=== PATIENT | female | born 1945 | race Caucasian/White ===

== ENCOUNTER → 2016-10-11 | Outpatient (CLI) | payer MEDICARE, BC ==
[~2016-10-11] MED LIST: ASPI81TA85 PO; BENI40TA7 PO; CELE100C PO; LABE20TAB PO; PRIL40CA PO; ULTR37.52 PO; WARF-23 PO; WELL100T2 PO
--- NOTE | 2016-10-12 08:56 | REP ---
MRI LUMBAR SPINE WITHOUT CONTRAST: HISTORY: Fracture. COMPARISON: 03/25/2013. Decreased signal intensity on T2-weighted images is present in the lumbar intervertebral discs. The discs are decreased in height. These findings are consistent with disc degeneration. A diffuse disc bulge is present at the L1-2 level. There is hypertrophy of the ligamenta flava and posterior articulating facets. These findings produce minimal central canal stenosis. The L1 nerves exit the neural foramina without compression. A diffuse disc bulge is present at the L2-3 level. There is hypertrophy of the ligamenta flava and posterior articulating facets. These findings produce mild central canal stenosis. The L2 nerves exit the neural foramina without compression. A diffuse disc bulge is present at the L3-4 level. There is hypertrophy of the ligamenta flava and posterior articulating facets. These findings produce moderate central canal stenosis. The L3 nerves exit the neural foramina without compression. A diffuse disc bulge is present at the L4-5 level. There is hypertrophy of the ligament flava and posterior articulating facets. There are 5 mm of grade 1 spondylolisthesis of L4 on 5. These findings produce severe central canal stenosis. The L4 nerves exit the neural foramina without compression. A diffuse disc bulge is present at the L5-S1 level. This abuts the S1 nerves. There is no thecal sac compression. There is hypertrophy of the posterior articulating facets. There is compression of the L5 nerves in the neural foramina. The conus medullaris is normal in appearance terminating at the level of the L1-2 intervertebral disc. Heterogeneous increased signal intensity on T2-weighted images is present in the L2 vertebral body . There is minimal loss of vertebra body height. This represents a subacute fracture. There is no subluxation. There is an old compression fracture of the L5 vertebral body with minimal height loss. Normal signal intensity is present in the remaining lumbar vertebral bodies. IMPRESSION: 1. Minimal central canal stenosis at the L1-2 level secondary to disc bulge, ligamentous and facet hypertrophy. 2. Mild central canal stenosis at the L2-3 level secondary to disc bulge, ligamentous and facet hypertrophy. 3. Moderate central canal stenosis at the L3-4 level secondary to disc bulge, ligamentous and facet hypertrophy. 4. Severe central canal stenosis at the L4-5 level secondary to disc bulge, ligamentous and facet hypertrophy and grade 1 spondylolisthesis. 5. Diffuse disc bulge at the L5-S1 level. This abuts the S1 nerves. There is compression of the L5 nerves in the neural foramina. 6. Subacute compression fracture of the L2 vertebral body with minimal height loss. The canal stenosis at the L1-2 level and L2 compression fracture are new findings. There is no other significant change. Signed by Alex Martínez MD 10/12/2016 09:03 A
== END ==
LOC: M RAD 17:59
PROVIDERS: ATTEND Neurological Surgery
DX: M51.26 Other intervertebral disc displacement, lumbar region (principal); M51.27 Other intervertebral disc displacement, lumbosacral region; M99.73 Connective tissue and disc stenosis of intervertebral foramina of lumbar region

== ENCOUNTER → 2016-10-18 | Outpatient (CLI) | payer MEDICARE, BC ==
[2016-10-18 16:53] LABS: INR 3.52
== END ==
LOC: M WUC 11:42
PROVIDERS: ATTEND Internal Medicine Cardiovascular Disease
DX: Z51.81 Encounter for therapeutic drug level monitoring (principal); Z79.01 Long term (current) use of anticoagulants; Z86.79 Personal history of other diseases of the circulatory system

== ENCOUNTER → 2016-10-18 | Outpatient (CLI) | payer MEDICARE, BC ==
[2016-10-18 19:18] LABS: ALBUMIN 3.8 GM/DL (3.2-5.2); ALBUMIN/GLOBULIN RATIO 1.27 (1.00-1.93); ALKALINE PHOSPHATASE 69 U/L (45-117); ALT/SGPT 40 U/L (12-78); ANION GAP 8 MEQ/L (8-16); AST/SGOT 32 U/L (15-37); BILIRUBIN,TOTAL 0.2 MG/DL (0.2-1.0); BLOOD UREA NITROGEN 28 MG/DL (7-18); CALCIUM LEVEL 9.1 MG/DL (8.8-10.2); CARBON DIOXIDE LEVEL 29 MEQ/L (21-32); CHLORIDE LEVEL 106 MEQ/L (98-107); CHOLESTEROL LEVEL 219 MG/DL (<200); CREATININE FOR GFR 1.16 MG/DL (0.55-1.02); GAMMA GLUTAMYLTRANSPEPTIDASE 41 U/L (5-55); GLOMERULAR FILTRATION RATE 48.9 (>39); GLUCOSE, FASTING 96 MG/DL (83-110); POTASSIUM SERUM 4.4 MEQ/L (3.5-5.1); SODIUM LEVEL 143 MEQ/L (136-145); TOTAL PROTEIN 6.8 GM/DL (6.4-8.2); TRIGLYCERIDES LEVEL 119 MG/DL (<150)
== END ==
LOC: M WUC 11:46
PROVIDERS: ATTEND Physician Assistant
DX: E78.2 Mixed hyperlipidemia (principal); Z79.01 Long term (current) use of anticoagulants
CPT/HCPCS: 36415; 80053; 80061; 82977; 85610; 86705; 86709; 86803; 87340; G0463

== ENCOUNTER → 2016-11-30 | Outpatient (CLI) | payer MEDICARE, BC ==
[2016-11-30 12:56] LABS: INR 4.01
== END ==
LOC: M WUC 10:41
PROVIDERS: ATTEND Internal Medicine Cardiovascular Disease
DX: Z51.81 Encounter for therapeutic drug level monitoring (principal); Z79.01 Long term (current) use of anticoagulants

== ENCOUNTER → 2017-01-04 | Outpatient (CLI) | payer MEDICARE, BC | LOC: M LAB 10:42 | PROVIDERS: ATTEND Neurological Surgery | DX: E66.9 Obesity, unspecified (principal); M47.892 Other spondylosis, cervical region; M47.896 Other spondylosis, lumbar region ==

== ENCOUNTER → 2017-01-04 | Outpatient (CLI) | payer MEDICARE, BC ==
[2017-01-04 14:15] LABS: INR 3.59
--- NOTE | 2017-01-04 14:32 | REP ---
CERVICAL SPINE COMPLETE: 01/04/2017. Comparison: 04/08/2008. Clinical history: Cervical spondylosis. Findings: Eight views were provided. The normal cervical lordosis is maintained. The vertebral body heights and the disc space heights were unchanged. I do not see significant loss of height of the vertebral bodies or disc spaces. Some minor hypertrophic facet changes. Excellent range of motion with flexion and extension lateral views noted without instability. The C1-2 relationships are stable on all views. There are some degenerative changes at the articulation of the dens and anterior arch of C1. The open-mouth view shows dens and lateral masses aligning normally. Oblique views show small uncinate spurs but no definite foraminal stenosis on either side. There is facet arthritis bilaterally on the AP view with spinous processes intact. Vascular calcifications for both carotid arteries noted. Impression: 1. Degenerative facet arthritis throughout the cervical spine without compression deformity, disc space narrowing or malalignment. No prevertebral swelling. 2. Minimal uncinate spurs without significant foraminal stenosis. Signed by Robert Bueno MD 01/04/2017 03:02 P
--- NOTE | 2017-01-04 15:01 | REP ---
LUMBOSACRAL SPINE: Seven views of the lumbosacral spine are performed. COMPARISON: 08/30/2016. There is 50 to 60% compression of the L2 vertebral body which has worsened since the prior exam. Mild compression deformity of L5 is unchanged. There is normal lumbar lordosis. There is mild anterior spondylolisthesis of L4 on L5 due to posterior facet arthropathy. This is fixed on all lateral views including flexion and extension views. There is mild to moderate diffuse spurring. There is disc space narrowing, subchondral sclerosis and vacuum phenomenon at L1-2. There is mild narrowing at L3-4, L4-5, and L5-S1. There is diffuse sclerosis and spurring at the posterior facet joints. The posterior elements appear intact. IMPRESSION: 50 to 60% compression of L2 has worsened since the prior study of 08/30/2016. Mild compression of L5 is unchanged. Diffuse degenerative changes as above. Signed by Shawn Valentin MD 01/05/2017 03:17 P
== END ==
LOC: M LAB 10:42
PROVIDERS: ATTEND Internal Medicine Cardiovascular Disease
DX: M47.892 Other spondylosis, cervical region (principal); M51.36 Other intervertebral disc degeneration, lumbar region; M51.37 Other intervertebral disc degeneration, lumbosacral region; M51.26 Other intervertebral disc displacement, lumbar region; E66.9 Obesity, unspecified; Z51.81 Encounter for therapeutic drug level monitoring; Z79.01 Long term (current) use of anticoagulants; Z86.79 Personal history of other diseases of the circulatory system

== ENCOUNTER → 2017-01-05 | Outpatient (CLI) | payer MEDICARE, BC ==
--- NOTE | 2017-01-05 17:27 | REP ---
MRI CERVICAL SPINE WITHOUT CONTRAST: 01/05/2017. Clinical history: Neck pain, cervical spondylosis. Comparison: X-ray 01/04/2017. Technique: Sagittal T1, T2 and STIR images with axial T1 and T2 sequences through the cervical spine. Findings: The normal cervical lordosis is maintained and the vertebral body heights and marrow signal throughout the cervical spine were unremarkable. Similarly into the upper thoracic spine for the first four levels are maintained. There is loss of disc water signal without loss of disc height from C2-3 through C7-T1. The dens shows normal relationship to the anterior arch of C1. The craniocervical junction shows an ample subarachnoid space without cerebellar tonsillar ectopia. The brainstem and cerebellum are without focal lesion. Cervical cord shows no syrinx, atrophy or mass. At C2-3, there is no disc bulge or herniation and no spinal or foraminal stenosis. At C3-4, there is a broad-based disc bulge with central disc protrusion. This abuts the ventral cord surface. The AP canal diameter remains 9 mm, is only mildly stenotic. Cross-sectional area of the canal is mildly stenotic and the subarachnoid space very limited; foramina are adequate. At C4-5, there is mild broad-based disc bulge, loss of the subarachnoid space with AP canal diameter of 9 mm as well. Foramina adequate. At C5-6, mild broad-based disc bulge flattening ventral thecal sac. Foramina borderline on both sides due to uncinate and facet spurs. At C6-7, very mild broad-based disc bulge flattening ventral thecal sac. Cross-sectional area of the canal 8.7 mm. Foramina adequate. At C7-T1, there is also mild broad-based disc bulge flattening the ventral thecal sac. Central canal AP diameter 9.4 mm without foraminal encroachment. Impression: 1. Multilevel degenerative disc changes and some mild central canal stenosis based on congenital and combined factors. The largest area of disc disease is at C3-4 with a central disc protrusion. Foramina were adequate. No cord compression, syrinx, atrophy, myelomalacia or intramedullary mass. 2. Cervical spondylosis from C4-5 through C7-T1, likely also related to some combined acquired and congenital factors. Signed by Robert Bueno MD 01/06/2017 08:57 A
== END ==
LOC: M RAD 15:30
PROVIDERS: ATTEND Neurological Surgery
DX: M50.31 Other cervical disc degeneration, high cervical region (principal); M47.812 Spondylosis without myelopathy or radiculopathy, cervical region; M47.813 Spondylosis without myelopathy or radiculopathy, cervicothoracic region

== ENCOUNTER → 2017-01-09 | Outpatient (CLI) | payer MEDICARE, BC ==
--- NOTE | 2017-01-09 10:59 | REP ---
CT LUMBAR SPINE WITHOUT CONTRAST: HISTORY: Spondylosis. COMPARISON: MR 10/11/2016. A diffuse disc bulge is present at the L1-2 level. There is hypertrophy of the ligamenta flava and posterior articulating facets. These findings produce minimal central canal stenosis. The L1 nerves exit the neural foramina without compression. A diffuse disc bulge is present at the L2-3 level. There is hypertrophy of the ligamenta flava and posterior articulating facets. These findings produce mild central canal stenosis. The L2 nerves exit the neural foramina without compression. A diffuse disc bulge is present at the L3-4 level. There is hypertrophy of the ligamenta flava and posterior articulating facets. These findings produce moderate central canal stenosis. There is compression of the left L3 nerve in the neural foramen. The right L3 nerve exits the neural foramen without compression. A diffuse disc bulge is present at the L4-5 level There is hypertrophy of the ligamenta flava and posterior articulating facets. There are 6 mm of grade 1 spondylolisthesis of L4 on 5. These findings produce severe central canal stenosis. The L4 nerves exit the neural foramina without compression. A diffuse disc bulge is present at the L5-S1 level. This abuts the S1 nerves. There is no thecal sac compression. There is hypertrophy of the posterior articulating facets. There is compression of the L5 nerves in the neural foramina. The lumbar intervertebral discs are decreased in height. Vacuum phenomenon is present at the L1-2 level These findings are consistent with disc degeneration. There is an old compression fracture of the L1 vertebral body with minimal height loss. There is very minimal retropulsion with minimal thecal sac compression. IMPRESSION: 1. Minimal central canal stenosis at the L1-2 level secondary to disc bulge, ligamentous and facet hypertrophy. 2. Mild central canal stenosis at the L2-3 level secondary to disc bulge ligamentous and facet hypertrophy. 3. Moderate central canal stenosis at the L3-4 level secondary to disc bulge, ligamentous and facet hypertrophy. There is compression of the left L3 nerve in the neural foramen. 4. Severe central canal stenosis at the L4-5 level secondary to disc bulge, ligamentous and facet hypertrophy and grade 1 spondylolisthesis. 5. Diffuse disc bulge at the L5-S1 level. This abuts the S1 nerves. There is compression of the L5 nerves in the neural foramina. 6. Old L1 compression fracture with minimal height loss and retropulsion. There is no significant change compared to the previous study. ? Signed by Alex Martínez MD 01/09/2017 11:04 A
== END ==
LOC: M RAD 09:56
PROVIDERS: ATTEND Neurological Surgery
DX: M99.53 Intervertebral disc stenosis of neural canal of lumbar region (principal); M51.27 Other intervertebral disc displacement, lumbosacral region; M84.48XD Pathological fracture, other site, subsequent encounter for fracture with routine healing

== ENCOUNTER → 2017-01-17 | Outpatient (CLI) | payer MEDICARE, BC ==
--- NOTE | 2017-01-19 09:18 | REPMRS ---
Patient History The patient states she has not had a clinical breast exam in over a year. Patient is postmenopausal. Family history of colorectal cancer in maternal aunt. Took hormonal contraceptives for 1 year. Took estrogen for 6 months. Digital Woman Screen Mammo: January 17, 2017 - Exam #: [id number] Bilateral MLO, CC, and XCCL view(s) were taken. Technologist: Pau Soto, Technologist Prior study comparison: May 28, 2012, bilateral bilat screen digital mammo, performed at [facility] ([facility]). October 04, 2010, bilateral screening mammogram, performed at [facility] ([facility]). FINDINGS: There are scattered fibroglandular densities. There has been no change in the appearance of the mammogram from the prior studies. There is a mild amount of residual fibroglandular tissue which is fairly symmetric. There is no interval development of dominant mass, architectural distortion, or clustered microcalcification suggestive of malignancy. ASSESSMENT: BI-RADS/ACR category 1 mammogram. Negative. Recommendation Routine screening mammogram in 1 year (for women over age 40). This mammogram was interpreted with the aid of an FDA-approved computer-aided dectection system. Electronically Signed By: Shawn Valentin MD 01/17/17 [id number]
--- NOTE | 2017-01-19 12:04 | DEXA ---
AP SPINE L1 - L4 1.404 1.7 2.5 LT FEMUR TOTAL 0.794 -1.7 -0.7 RT FEMUR TOTAL 0.769 -1.9 0.9 TOTAL BODY TOTAL OTHER DUAL FEMUR FRAX* ASSESSMENT Risk factors: History of adult fracture. 10 year probability of fracture Major osteoporotic fracture 20.1 % Hip fracture 4.7 % COMMENTS: Normal bone densitometry of the spine. There is low bone density of the hips. The increased density of the spine does represent a significant change. The decreased density of the left hip does represent significant change. The decreased density of the right hip does represent significant change. The density of the spine has increased 20.8% since the initial exam on 1999. The spine density has increased 7.3% since the most recent exam on 10/04/2010. The density of the left hip has decreased 6.5% since the initial exam on 1999. The density of the left hip has decreased 5.1% since the most recent exam on 07/2011. The density of the right hip has decreased 3.5% since the initial exam on 1999. The density of the right hip has decreased 3.9% since the most recent exam on . FOLLOW-UP: Recommendation for the next bone density exam: 2 years. DEEPA
== END ==
LOC: M WHC 08:29
PROVIDERS: ATTEND Physician Assistant
DX: Z12.31 Encounter for screening mammogram for malignant neoplasm of breast (principal); M85.80 Other specified disorders of bone density and structure, unspecified site; Z78.0 Asymptomatic menopausal state; Z92.0 Personal history of contraception
CPT/HCPCS: 77080; G0202

== ENCOUNTER → 2017-02-12 | Outpatient (CLI) | payer MEDICARE, BC ==
[2017-02-12 17:26] LABS: INR 3.25
== END ==
LOC: M WUC 15:42
PROVIDERS: ATTEND Internal Medicine Cardiovascular Disease
DX: Z51.81 Encounter for therapeutic drug level monitoring (principal); Z79.01 Long term (current) use of anticoagulants

== ENCOUNTER → 2017-03-16 | Outpatient (CLI) | payer MEDICARE, BC ==
[2017-03-16 17:22] LABS: ALBUMIN 3.7 GM/DL (3.2-5.2); ALBUMIN/GLOBULIN RATIO 1.16 (1.00-1.93); ALKALINE PHOSPHATASE 64 U/L (45-117); ALT/SGPT 51 U/L (12-78); ANION GAP 7 MEQ/L (8-16); AST/SGOT 24 U/L (15-37); BILIRUBIN,TOTAL 0.3 MG/DL (0.2-1.0); BLOOD UREA NITROGEN 32 MG/DL (7-18); CALCIUM LEVEL 8.9 MG/DL (8.8-10.2); CARBON DIOXIDE LEVEL 30 MEQ/L (21-32); CHLORIDE LEVEL 105 MEQ/L (98-107); CHOLESTEROL LEVEL 236 MG/DL (<200); GAMMA GLUTAMYLTRANSPEPTIDASE 55 U/L (5-55); GLOMERULAR FILTRATION RATE 51.8 (>39); GLUCOSE, FASTING 104 MG/DL (83-110); POTASSIUM SERUM 4.4 MEQ/L (3.5-5.1); SODIUM LEVEL 142 MEQ/L (136-145); TOTAL PROTEIN 6.9 GM/DL (6.4-8.2); TRIGLYCERIDES LEVEL 115 MG/DL (<150)
== END ==
LOC: M WUC 10:30
PROVIDERS: ATTEND Physician Assistant
DX: E78.2 Mixed hyperlipidemia (principal); Z51.81 Encounter for therapeutic drug level monitoring; Z79.01 Long term (current) use of anticoagulants

== ENCOUNTER → 2017-03-16 | Outpatient (CLI) | payer MEDICARE, BC ==
[2017-03-16 16:44] LABS: INR 2.66
== END ==
LOC: M WUC 10:50
PROVIDERS: ATTEND Internal Medicine Cardiovascular Disease
DX: Z51.81 Encounter for therapeutic drug level monitoring (principal); Z79.01 Long term (current) use of anticoagulants

== ENCOUNTER → 2017-05-03 | Outpatient (CLI) | payer MEDICARE, BC ==
[~2017-05-03] MED LIST changes: +BENI40TA30 PO; -BENI40TA7 PO; -ULTR37.52 PO; +ULTR37.54 PO
[2017-05-03 17:25] LABS: INR 3.81
== END ==
LOC: M WUC 13:44
PROVIDERS: ATTEND Internal Medicine Cardiovascular Disease
DX: Z51.81 Encounter for therapeutic drug level monitoring (principal); Z79.01 Long term (current) use of anticoagulants

== ENCOUNTER → 2017-06-15 | Outpatient (CLI) | payer MEDICARE, BC ==
[2017-06-15 19:22] LABS: INR 4.15
== END ==
LOC: M WUC 16:06
PROVIDERS: ATTEND Internal Medicine Cardiovascular Disease
DX: Z51.81 Encounter for therapeutic drug level monitoring (principal); Z79.01 Long term (current) use of anticoagulants

== ENCOUNTER → 2017-07-31 | Outpatient (REF) | payer MEDICARE, BC ==
[2017-07-31 11:59] LABS: RENAL EPITHELIAL CELLS 2 /HPF
== END ==
LOC: M SFHCLERA 09:24
PROVIDERS: ATTEND Family Medicine
DX: R35.0 Frequency of micturition (principal); J34.89 Other specified disorders of nose and nasal sinuses; Z23 Encounter for immunization
CPT/HCPCS: 81001; 87086; 90686; G0008; G0463

== ENCOUNTER → 2017-08-22 | Outpatient (CLI) | payer MEDICARE, BC ==
[2017-08-22 19:30] LABS: MEAN CORPUSCULAR HEMOGLOBIN 32.6 pg (27.0-33.0); MEAN CORPUSCULAR HGB CONC 31.9 g/dl (32.0-36.5); MEAN CORPUSCULAR VOLUME 102.4 fl (80.0-96.0); PLATELET COUNT, AUTOMATED 388 10^3/uL (150-450); RED CELL DISTRIBUTION WIDTH 14.4 % (11.5-14.5); WHITE BLOOD COUNT 10.2 10^3/uL (4.0-10.0)
[2017-08-22 20:04] LABS: ALBUMIN 3.6 GM/DL (3.2-5.2); ALBUMIN/GLOBULIN RATIO 1.03 (1.00-1.93); BILIRUBIN,TOTAL 0.3 MG/DL (0.2-1.0); CALCIUM LEVEL 8.9 MG/DL (8.8-10.2); CREATININE FOR GFR 1.2 MG/DL (0.55-1.02); GLOMERULAR FILTRATION RATE 46.9 (>39); POTASSIUM SERUM 4.4 MEQ/L (3.5-5.1); TOTAL PROTEIN 7.1 GM/DL (6.4-8.2)
== END ==
LOC: M WUC 11:11
PROVIDERS: ATTEND Physician Assistant
DX: N18.3 Chronic kidney disease, stage 3 (moderate) (principal); E78.2 Mixed hyperlipidemia; Z51.81 Encounter for therapeutic drug level monitoring; Z79.01 Long term (current) use of anticoagulants

== ENCOUNTER → 2017-08-22 | Outpatient (CLI) | payer MEDICARE, BC ==
[2017-08-22 17:48] LABS: INR 4.39
== END ==
LOC: M WUC 11:14
PROVIDERS: ATTEND Internal Medicine Cardiovascular Disease
DX: Z51.81 Encounter for therapeutic drug level monitoring (principal); Z79.01 Long term (current) use of anticoagulants

== ENCOUNTER → 2017-09-06 | Outpatient (REF) | payer MEDICARE, BC | LOC: M SFHCLERA 10:02 | PROVIDERS: ATTEND Physician Assistant | DX: R35.0 Frequency of micturition (principal) ==

== ENCOUNTER → 2017-09-07 | Outpatient (CLI) | payer MEDICARE, BC ==
--- NOTE | 2017-09-07 17:52 | REP ---
Right lower extremity deep vein duplex ultrasound: The deep veins demonstrate normal compression, normal Doppler color flow and normal Doppler waveforms with respiration and augmentation from the popliteal vein to the common femoral vein. Impression: There is no deep vein thrombus in the right lower extremity. Signed by Shawn Barreto MD 09/07/2017 05:43 P
== END ==
LOC: M RAD 16:59
PROVIDERS: ATTEND Physician Assistant
DX: M79.89 Other specified soft tissue disorders (principal)

== ENCOUNTER → 2017-09-11 | Outpatient (REF) | payer MEDICARE, BC | LOC: M SFHCLERA 19:11 | PROVIDERS: ATTEND Physician Assistant | DX: R35.0 Frequency of micturition (principal) ==

== ENCOUNTER → 2017-10-12 | Outpatient (CLI) | payer MEDICARE, BC ==
[2017-10-12 18:27] LABS: INR 4.69; PROTHROMBIN TIME 46.7 SECONDS (12.4-14.5)
== END ==
LOC: M WUC 15:23
DX: Z51.81 Encounter for therapeutic drug level monitoring (principal); Z79.01 Long term (current) use of anticoagulants
CPT/HCPCS: 85610

== ENCOUNTER → 2017-10-23 | Outpatient (CLI) | payer MEDICARE, BC ==
[2017-10-23 17:09] LABS: INR 2.26; PROTHROMBIN TIME 25.8 SECONDS (12.4-14.5)
== END ==
LOC: M WUC 15:10
DX: I74.09 Other arterial embolism and thrombosis of abdominal aorta (principal); Z79.01 Long term (current) use of anticoagulants
CPT/HCPCS: 85610

== ENCOUNTER → 2017-12-12 | Outpatient (CLI) | payer MEDICARE, BC ==
[2017-12-12 09:42] LABS: INR 1.33; PROTHROMBIN TIME 16.8 SECONDS (12.4-14.5)
== END ==
LOC: M LAB 08:56
DX: Z51.81 Encounter for therapeutic drug level monitoring (principal); Z79.01 Long term (current) use of anticoagulants; M46.1 Sacroiliitis, not elsewhere classified
CPT/HCPCS: 85610

== ENCOUNTER → 2018-01-10 | Outpatient (CLI) | payer MEDICARE, BC ==
[2018-01-10 09:37] LABS: INR 1.15; PROTHROMBIN TIME 14.9 SECONDS (12.4-14.5)
== END ==
LOC: M LAB 09:06
DX: M46.1 Sacroiliitis, not elsewhere classified (principal); M47.816 Spondylosis without myelopathy or radiculopathy, lumbar region; M47.817 Spondylosis without myelopathy or radiculopathy, lumbosacral region; M51.36 Other intervertebral disc degeneration, lumbar region; M51.37 Other intervertebral disc degeneration, lumbosacral region; M51.27 Other intervertebral disc displacement, lumbosacral region; M51.26 Other intervertebral disc displacement, lumbar region; Z79.01 Long term (current) use of anticoagulants
CPT/HCPCS: 85610

== ENCOUNTER → 2018-02-01 | Outpatient (CLI) | payer MEDICARE, BC ==
[2018-02-01 10:35] LABS: PROTHROMBIN TIME 14.4 SECONDS (12.4-14.5)
== END ==
LOC: M LAB 09:57
DX: M46.1 Sacroiliitis, not elsewhere classified (principal)
CPT/HCPCS: 85610

== ENCOUNTER → 2018-03-19 | Outpatient (CLI) | payer MEDICARE, BC | LOC: M RAD 12:46 | DX: M46.1 Sacroiliitis, not elsewhere classified (principal) | CPT/HCPCS: 72148 ==

== ENCOUNTER → 2018-03-28 | Outpatient (CLI) | payer MEDICARE, BC ==
[2018-03-28 13:23] LABS: INR 4.03; PROTHROMBIN TIME 40.2 SECONDS (12.1-14.4)
== END ==
LOC: M WUC 09:42
DX: I74.09 Other arterial embolism and thrombosis of abdominal aorta (principal); Z79.01 Long term (current) use of anticoagulants
CPT/HCPCS: 85610

== ENCOUNTER → 2018-04-05 | Outpatient (CLI) | payer MEDICARE, BC ==
[2018-04-05 09:40] LABS: INR 1.04; PROTHROMBIN TIME 13.7 SECONDS (12.1-14.4)
== END ==
LOC: M LAB 08:29
DX: M46.1 Sacroiliitis, not elsewhere classified (principal)

== ENCOUNTER → 2018-04-05 | Outpatient (CLI) | payer MEDICARE, BC ==
[2018-04-05 09:36] LABS: HEMATOCRIT 34.1 % (36.0-47.0); HEMOGLOBIN 11.2 g/dl (12.0-15.5); MEAN CORPUSCULAR HEMOGLOBIN 33.3 pg (27.0-33.0); MEAN CORPUSCULAR HGB CONC 32.8 g/dl (32.0-36.5); MEAN CORPUSCULAR VOLUME 101.5 fl (80.0-96.0); PLATELET COUNT, AUTOMATED 309 10^3/uL (150-450); RED BLOOD COUNT 3.36 10^6/uL (4.00-5.40); WHITE BLOOD COUNT 6.8 10^3/uL (4.0-10.0)
[2018-04-05 09:42] LABS: APPEARANCE, URINE CLEAR (CLEAR); BACTERIA, URINE AUTO NEGATIVE (NEGATIVE); BILIRUBIN, URINE AUTO NEGATIVE (NEGATIVE); BLOOD, URINE BLOOD NEGATIVE (NEGATIVE); COLOR, URINE YELLOW (YELLOW); GLUCOSE, URINE (UA) AUTO NEGATIVE (NEGATIVE); KETONE, URINE AUTO NEGATIVE (NEGATIVE); LEUKOCYTE ESTERASE, URINE AUTO NEGATIVE (NEGATIVE); MUCUS, URINE SMALL (NEGATIVE); NITRITE, URINE AUTO NEGATIVE (NEGATIVE); PROTEIN, URINE AUTO NEGATIVE (NEGATIVE); RBC, URINE AUTO 2 /HPF (0-3); SQUAMOUS EPITHELIAL CELL UR AU 6 /HPF (0-6); UROBILINOGEN, URINE AUTO 0.2 mg/dL (0.0-2.0); WBC, URINE AUTO 6 /HPF (0-3)
[2018-04-05 09:56] LABS: ERYTHROCYTE SEDIMENTATION RATE 61 mm/hr (0-30)
[2018-04-05 10:12] LABS: VITAMIN B12 LEVEL 728 PG/ML (247-911)
[2018-04-05 10:13] LABS: FOLATE 9.1 NG/ML (>5.4)
[2018-04-05 10:18] LABS: ESTIMATED AVERAGE GLUCOSE 117 MG/DL (60-110); HEMOGLOBIN A1c 5.7 %
[2018-04-05 10:30] LABS: ALBUMIN 3.4 GM/DL (3.2-5.2); ALBUMIN/GLOBULIN RATIO 0.97 (1.00-1.93); ALKALINE PHOSPHATASE 63 U/L (45-117); ALT/SGPT 34 U/L (12-78); ANION GAP 9 MEQ/L (8-16); AST/SGOT 25 U/L (7-37); BILIRUBIN,TOTAL 0.5 MG/DL (0.2-1.0); BLOOD UREA NITROGEN 23 MG/DL (7-18); CARBON DIOXIDE LEVEL 29 MEQ/L (21-32); CHLORIDE LEVEL 105 MEQ/L (98-107); CHOLESTEROL LEVEL 237 MG/DL (<200); CHOLESTEROL RISK RATIO 4.388 (<5); CREATININE FOR GFR 1.11 MG/DL (0.55-1.30); FREE T4 0.93 NG/DL (0.76-1.46); GLOMERULAR FILTRATION RATE 51.2 (>39); GLUCOSE, FASTING 108 MG/DL (70-100); HDL CHOLESTEROL 54 MG/DL (>40); IRON (FE) 159 UG/DL (50-170); LDL CHOLESTEROL 149.4 MG/DL (<100); MAGNESIUM LEVEL 1.8 MG/DL (1.8-2.4); NON-HDL-C 183 MG/DL; POTASSIUM SERUM 4.5 MEQ/L (3.5-5.1); SODIUM LEVEL 143 MEQ/L (136-145); TOTAL PROTEIN 6.9 GM/DL (6.4-8.2); TRIGLYCERIDES LEVEL 168 MG/DL (<150)
== END ==
LOC: M LAB 08:34
DX: D64.9 Anemia, unspecified (principal); Z79.01 Long term (current) use of anticoagulants; Z79.899 Other long term (current) drug therapy; M46.1 Sacroiliitis, not elsewhere classified
CPT/HCPCS: 82746

== ENCOUNTER → 2018-05-10 | Outpatient (CLI) | payer MEDICARE, BC ==
[2018-05-10 09:46] LABS: INR 1.09; PROTHROMBIN TIME 14.2 SECONDS (12.1-14.4)
== END ==
LOC: M LAB 08:29
DX: M46.1 Sacroiliitis, not elsewhere classified (principal); Z79.01 Long term (current) use of anticoagulants
CPT/HCPCS: 85610

== ENCOUNTER → 2018-07-10 | Outpatient (CLI) | payer MEDICARE, BC ==
[2018-07-10 10:06] LABS: INR 1.15; PROTHROMBIN TIME 14.9 SECONDS (12.1-14.4)
== END ==
LOC: M LAB 09:21
DX: M46.1 Sacroiliitis, not elsewhere classified (principal)
CPT/HCPCS: 85610

== ENCOUNTER → 2018-08-01 | Outpatient (CLI) | payer MEDICARE, BC ==
[2018-08-01 12:45] LABS: BASO # 0.1 10^3/uL (0.0-0.2); BASO % 0.9 % (0.0-1.0); EOS # 0.2 10^3/uL (0.0-0.50); EOS % 3.7 % (0.0-3.0); HEMOGLOBIN 11.6 g/dl (12.0-15.5); IMMATURE GRANULOCYTE % 0.3 % (0-3.0); LYMPH # 1.9 10^3/uL (1.5-4.5); LYMPH % 29.4 % (24.0-44.0); MEAN CORPUSCULAR HEMOGLOBIN 33.4 pg (27.0-33.0); MEAN CORPUSCULAR HGB CONC 33.1 g/dl (32.0-36.5); MEAN CORPUSCULAR VOLUME 100.9 fl (80.0-96.0); MONO # 0.6 10^3/uL (0.0-0.8); MONO % 9.9 % (0.0-5.0); NEUTROPHILS # 3.6 10^3/uL (1.8-7.7); NEUTROPHILS % 55.8 % (36.0-66.0); PLATELET COUNT, AUTOMATED 298 10^3/uL (150-450); RED BLOOD COUNT 3.47 10^6/uL (4.00-5.40); RED CELL DISTRIBUTION WIDTH 13.2 % (11.5-14.5); RETIC HEMOGLOBIN EQUIVALENT 37.6 pg (24-36); RETICULOCYTE # 47.2 10^9/L (17-77); RETICULOCYTE % 1.4 % (0.5-1.5); WHITE BLOOD COUNT 6.5 10^3/uL (4.0-10.0)
[2018-08-01 13:44] LABS: ALBUMIN 3.6 GM/DL (3.2-5.2); ALBUMIN/GLOBULIN RATIO 1.06 (1.00-1.93); ALKALINE PHOSPHATASE 65 U/L (45-117); ALT/SGPT 43 U/L (12-78); ANION GAP 9 MEQ/L (8-16); AST/SGOT 35 U/L (7-37); BILIRUBIN,TOTAL 0.2 MG/DL (0.2-1.0); BLOOD UREA NITROGEN 30 MG/DL (7-18); CALCIUM LEVEL 9.2 MG/DL (8.8-10.2); CARBON DIOXIDE LEVEL 27 MEQ/L (21-32); CHLORIDE LEVEL 104 MEQ/L (98-107); CHOLESTEROL LEVEL 239 MG/DL (<200); CREATININE FOR GFR 1.12 MG/DL (0.55-1.30); FERRITIN 34 NG/ML (8-252); GLOMERULAR FILTRATION RATE 50.6 (>39); GLUCOSE, FASTING 106 MG/DL (70-100); HDL CHOLESTEROL 59 MG/DL (>40); IRON (FE) 70 UG/DL (50-170); LDL CHOLESTEROL 151 MG/DL (<100); MAGNESIUM LEVEL 2.1 MG/DL (1.8-2.4); NON-HDL-C 180 MG/DL; PERCENT SATURATION 21.3 % (13.2-45.0); POTASSIUM SERUM 4.1 MEQ/L (3.5-5.1); PTH INTACT 67.9 PG/ML (18.5-88.0); SODIUM LEVEL 140 MEQ/L (136-145); TOTAL 25(OH) VITAMIN D 33.1 NG/ML (30.0-100.0); TOTAL IRON BINDING CAPACITY 329 UG/DL (250-450); TRIGLYCERIDES LEVEL 144 MG/DL (<150)
[2018-08-01 18:31] LABS: ESTIMATED AVERAGE GLUCOSE 120 MG/DL (60-110); HEMOGLOBIN A1c 5.8 %
[2018-08-02 14:35] LABS: INSULIN LEVEL 14.9 uIU/mL (2.6-24.9)
== END ==
LOC: M WUC 10:04
DX: N18.3 Chronic kidney disease, stage 3 (moderate) (principal); D64.9 Anemia, unspecified; R73.01 Impaired fasting glucose; E78.2 Mixed hyperlipidemia; I12.9 Hypertensive chronic kidney disease with stage 1 through stage 4 chronic kidney disease, or unspecified chronic kidney disease; E55.9 Vitamin D deficiency, unspecified; I74.5 Embolism and thrombosis of iliac artery; Z51.81 Encounter for therapeutic drug level monitoring; Z79.01 Long term (current) use of anticoagulants
CPT/HCPCS: 83525

== ENCOUNTER → 2018-08-01 | Outpatient (CLI) | payer MEDICARE, BC ==
[2018-08-01 17:17] LABS: INR 4.88; PROTHROMBIN TIME 46.8 SECONDS (12.1-14.4)
== END ==
LOC: M WUC 11:28
DX: I74.5 Embolism and thrombosis of iliac artery (principal); Z51.81 Encounter for therapeutic drug level monitoring; Z79.01 Long term (current) use of anticoagulants

== ENCOUNTER → 2018-08-21 | Outpatient (CLI) | payer MEDICARE, BC ==
[2018-08-21 16:58] LABS: INR 4.19; PROTHROMBIN TIME 41.5 SECONDS (12.1-14.4)
== END ==
LOC: M WUC 11:28
DX: I74.09 Other arterial embolism and thrombosis of abdominal aorta (principal); Z79.01 Long term (current) use of anticoagulants
CPT/HCPCS: 85610

== ENCOUNTER → 2018-09-30 | Outpatient (CLI) | payer MEDICARE, BC ==
[2018-09-30 13:20] LABS: INR 3.61; PROTHROMBIN TIME 36.8 SECONDS (12.1-14.4)
== END ==
LOC: M WUC 08:41
PROVIDERS: ATTEND Internal Medicine Cardiovascular Disease
DX: Z79.01 Long term (current) use of anticoagulants (principal)

== ENCOUNTER → 2018-10-22 | Outpatient (REF) | payer MEDICARE, BC ==
[2018-10-22 16:12] LABS: ALBUMIN 3.6 GM/DL (3.2-5.2); CALCIUM LEVEL 8.9 MG/DL (8.8-10.2); CREATININE FOR GFR 1.13 MG/DL (0.55-1.30); GLOMERULAR FILTRATION RATE 50.1 (>39); PHOSPHORUS LEVEL 3.4 MG/DL (2.5-4.9); POTASSIUM SERUM 4.3 MEQ/L (3.5-5.1)
[2018-10-22 16:46] LABS: INR 3.75; PARTIAL THROMBOPLASTIN TIME 49.9 SECONDS (25.4-37.6)
== END ==
LOC: M SFHCPLAZ 12:13
PROVIDERS: ATTEND Nurse Practitioner Family
DX: I10 Essential (primary) hypertension (principal); Z79.01 Long term (current) use of anticoagulants
CPT/HCPCS: 36415; 80069; 85610; 85730; G0404

== ENCOUNTER → 2018-10-28 | Outpatient (CLI) | payer MEDICARE, BC ==
--- NOTE | 2018-10-28 12:29 | REP ---
Urinary tract sonography with renal artery Doppler flow assessment: History: Hypertension. Morphologic findings: Renal cortical echogenicity pattern is normal and renal contours are smooth bilaterally. No hydronephrosis is seen. No cyst or mass is seen. No calculus is observed. The right kidney measures 10.2 x 5.9 x 4.9 cm. Left renal dimensions are 11.7 x 5.5 x 5.1 cm. Renal artery Doppler assessment: Peak systolic flow velocity in the abdominal aorta at the level of the main renal arteries is normal at 60 cm/sec. Peak systolic flow velocity in the right main renal artery is recorded at 57 cm/sec and that in the left at 81 cm/sec. Renal to aortic flow velocity ratios are therefore normal at 1.4 bilaterally. Resistive indices and acceleration times are measured in the upper, mid, and lower pole intralobar arteries of each kidney and these values are normal bilaterally. Impression: No significant morphologic abnormality. There is no renal artery Doppler evidence to suggest renal artery stenosis. Electronically Signed by Lamin Gamez MD 10/28/2018 01:55 P
== END ==
LOC: M RAD 08:25
PROVIDERS: ATTEND Nurse Practitioner Family
DX: I10 Essential (primary) hypertension (principal)

== ENCOUNTER → 2018-12-02 | Outpatient (CLI) | payer MEDICARE, BC ==
[2018-12-02 12:33] LABS: BASO # 0.1 10^3/uL (0.0-0.2); BASO % 1.1 % (0.0-1.0); EOS # 0.3 10^3/uL (0.0-0.50); EOS % 4.3 % (0.0-3.0); HEMATOCRIT 35.9 % (36.0-47.0); LYMPH # 2.2 10^3/uL (1.5-4.5); MEAN CORPUSCULAR HGB CONC 33.4 g/dl (32.0-36.5); MEAN CORPUSCULAR VOLUME 98.6 fl (80.0-96.0); MONO # 0.7 10^3/uL (0.0-0.8); MONO % 9.3 % (0.0-5.0); NEUTROPHILS # 3.7 10^3/uL (1.8-7.7); NEUTROPHILS % 53.7 % (36.0-66.0); PLATELET COUNT, AUTOMATED 321 10^3/uL (150-450); RED BLOOD COUNT 3.64 10^6/uL (4.00-5.40)
[2018-12-02 13:13] LABS: ALBUMIN 3.2 GM/DL (3.2-5.2); BILIRUBIN,TOTAL 0.3 MG/DL (0.2-1.0); CALCIUM LEVEL 8.4 MG/DL (8.8-10.2); CHOLESTEROL RISK RATIO 3.783 (<5); CREATININE FOR GFR 1.11 MG/DL (0.55-1.30); FOLATE 9.4 NG/ML (>5.4); GLOMERULAR FILTRATION RATE 51.2 (>39); MAGNESIUM LEVEL 1.9 MG/DL (1.8-2.4); POTASSIUM SERUM 3.6 MEQ/L (3.5-5.1); THYROID STIMULATING HORMONE 1.96 uIU/ML (0.358-3.740); TOTAL 25(OH) VITAMIN D 24.6 NG/ML (30.0-100.0); TOTAL PROTEIN 6.5 GM/DL (6.4-8.2)
[2018-12-02 13:14] LABS: PHOSPHORUS LEVEL 3.1 MG/DL (2.5-4.9)
== END ==
LOC: M WUC 08:46
PROVIDERS: ATTEND Nurse Practitioner Family
DX: I10 Essential (primary) hypertension (principal); E78.2 Mixed hyperlipidemia; D64.9 Anemia, unspecified; E55.9 Vitamin D deficiency, unspecified; R73.01 Impaired fasting glucose

== ENCOUNTER → 2019-01-01 | Outpatient (CLI) | payer MEDICARE, BC ==
[~2019-01-01] MED LIST changes: +ISOVUE-370 76% 100ML VIAL (Q9967) As Ordered ONE
--- NOTE | 2019-01-01 10:33 | REP ---
CT angiography of the abdomen, pelvis and lower extremities: The patient has bilateral claudication and history of previous vascular surgery. The study is performed with intravenous contrast. There is no abdominal aortic aneurysm. There is occasional abdominal aortic calcified atheroma. The origins of the celiac artery, superior mesenteric artery and right and left renal arteries are unremarkable. 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 The left iliac artery is unremarkable. The left femoral artery is unremarkable. There is a cross femoral graft from the left femoral artery to the proximal right femoral artery. There is total occlusion of the right superficial femoral artery at the junction of the middle distal thirds. There is reconstitution of the right popliteal artery via collaterals. The left superficial femoral artery is unremarkable. The left popliteal artery is unremarkable. The popliteal artery trifurcations are unremarkable bilaterally. There is three-vessel runoff across the ankles bilaterally. 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 There is total occlusion of the distal right superficial femoral artery. Reconstitution of the right popliteal artery through collaterals. Three-vessel runoff across the ankles from the popliteal artery trifurcations bilaterally. The CT of the abdomen and pelvis: There are no comparisons. The visualized lung [place] are unremarkable. The hepatic parenchyma, gallbladder, pancreas are unremarkable. There is no identifiable spleen. There are calcifications at the tail of the pancreas in the splenic bed. The there are a few small nodular densities in the splenic bed, splenosis versus normal size lymph nodes. The adrenals are unremarkable. The kidneys are unremarkable except for bilateral renal cortical atrophy. There is an umbilical hernia containing loops of transverse colon. There is no bowel distension or obstruction. The mesentery is unremarkable. Pelvis: The appendix is unremarkable. The pelvic bowel loops are unremarkable. The uterus and adnexa are unremarkable. The bladder is unremarkable. Impression: There is no identifiable spleen. There are a few small nodules in the splenic bed, splenosis versus normal size lymph nodes. There are calcifications at the tip of the pancreatic tail in the splenic bed. Bilateral renal cortical atrophy. Umbilical hernia. Electronically Signed by Shawn Barreto MD 01/01/2019 10:25 A
== END ==
LOC: M RAD 08:34
PROVIDERS: ATTEND Surgery Vascular Surgery
DX: I74.5 Embolism and thrombosis of iliac artery (principal); K42.9 Umbilical hernia without obstruction or gangrene; I70.513 Atherosclerosis of nonautologous biological bypass graft(s) of the extremities with intermittent claudication, bilateral legs; Z48.812 Encounter for surgical aftercare following surgery on the circulatory system
CPT/HCPCS: 75635; 85610; G0463; Q9967

== ENCOUNTER → 2019-01-27 | Outpatient (REF) | payer MEDICARE, BC ==
[~2019-01-27] MED LIST changes: -ISOVUE-370 76% 100ML VIAL (Q9967) As Ordered ONE
[2019-01-27 16:03] LABS: HEMATOCRIT 37.9 % (36.0-47.0); HEMOGLOBIN 12.5 g/dl (12.0-15.5); MEAN CORPUSCULAR HEMOGLOBIN 33.1 pg (27.0-33.0); MEAN CORPUSCULAR VOLUME 100.3 fl (80.0-96.0); PLATELET COUNT, AUTOMATED 263 10^3/uL (150-450); RED BLOOD COUNT 3.78 10^6/uL (4.00-5.40)
[2019-01-27 16:38] LABS: FREE T4 1.13 NG/DL (0.76-1.46); THYROID STIMULATING HORMONE 1.44 uIU/ML (0.358-3.740)
== END ==
LOC: M SFHCPLAZ 14:33
PROVIDERS: ATTEND Nurse Practitioner Family
DX: R53.83 Other fatigue (principal); Z79.01 Long term (current) use of anticoagulants
CPT/HCPCS: 36415; 84439; 84443; 85027; 85610; G0463

== ENCOUNTER → 2019-03-31 | Outpatient (CLI) | payer MEDICARE, BC ==
[2019-03-31 13:08] LABS: BASO # 0.1 10^3/uL (0.0-0.2); BASO % 1.4 % (0.0-1.0); EOS # 0.4 10^3/uL (0.0-0.50); EOS % 6.2 % (0.0-3.0); HEMATOCRIT 37.3 % (36.0-47.0); HEMOGLOBIN 12.3 g/dl (12.0-15.5); LYMPH # 2.2 10^3/uL (1.5-4.5); LYMPH % 34.9 % (24.0-44.0); MEAN CORPUSCULAR HEMOGLOBIN 32.7 pg (27.0-33.0); MEAN CORPUSCULAR VOLUME 99.2 fl (80.0-96.0); MONO # 0.6 10^3/uL (0.0-0.8); MONO % 9.2 % (0.0-5.0); NEUTROPHILS # 3.1 10^3/uL (1.8-7.7); PLATELET COUNT, AUTOMATED 319 10^3/uL (150-450); RED BLOOD COUNT 3.76 10^6/uL (4.00-5.40); WHITE BLOOD COUNT 6.4 10^3/uL (4.0-10.0)
[2019-03-31 13:17] LABS: ALBUMIN 3.5 GM/DL (3.2-5.2); BILIRUBIN,TOTAL 0.2 MG/DL (0.2-1.0); CHOLESTEROL RISK RATIO 2.597 (<5); CREATININE FOR GFR 1.08 MG/DL (0.55-1.30); GLOMERULAR FILTRATION RATE 52.7 (>39); MAGNESIUM LEVEL 2.2 MG/DL (1.8-2.4); PHOSPHORUS LEVEL 3.7 MG/DL (2.5-4.9); POTASSIUM SERUM 3.5 MEQ/L (3.5-5.1); THYROID STIMULATING HORMONE 2.05 uIU/ML (0.358-3.740); TOTAL PROTEIN 6.9 GM/DL (6.4-8.2)
[2019-03-31 13:21] LABS: FOLATE 11.9 NG/ML (>5.4)
[2019-03-31 14:21] LABS: HEMOGLOBIN A1c 5.8 %
== END ==
LOC: M WUC 08:37
PROVIDERS: ATTEND Nurse Practitioner Family
DX: Z79.01 Long term (current) use of anticoagulants (principal); E78.2 Mixed hyperlipidemia; E55.9 Vitamin D deficiency, unspecified; K21.9 Gastro-esophageal reflux disease without esophagitis; D64.9 Anemia, unspecified; M79.7 Fibromyalgia; I12.9 Hypertensive chronic kidney disease with stage 1 through stage 4 chronic kidney disease, or unspecified chronic kidney disease

== ENCOUNTER → 2019-04-02 | Outpatient (REF) | payer MEDICARE, BC | LOC: M SFHCPLAZ 15:37 | PROVIDERS: ATTEND Nurse Practitioner Family | DX: M48.061 Spinal stenosis, lumbar region without neurogenic claudication (principal) ==

== ENCOUNTER → 2019-04-30 | Outpatient (CLI) | payer MEDICARE, BC ==
--- NOTE | 2019-04-30 15:12 | REPMRS ---
Patient History The patient states she has not had a clinical breast exam in over a year. Family history of colorectal cancer in maternal aunt. Took hormonal contraceptives for 1 year. Took estrogen for 6 months. 3D TOMOSYNTHESIS WAS PERFORMED. [facility] Digital Woman Screen Mammo: April 30, 2019 - Exam #: [id number] Bilateral CC and MLO view(s) were taken. Technologist: Aida Michel, Technologist Prior study comparison: January 17, 2017, digital woman screen mammo performed at [facility]. May 28, 2012, bilateral bilat screen digital mammo, performed at [facility] ([facility] FINDINGS: There are scattered fibroglandular densities. There has been no change in the appearance of the mammogram from the prior studies. There is a mild amount of residual fibroglandular tissue which is fairly symmetric. There is no interval development of dominant mass, architectural distortion, or clustered microcalcification suggestive of malignancy. Assessment: BI-RADS/ACR category 1 mammogram. Negative Mammogram. Recommendation Routine screening mammogram in 1 year (for women over age 40). This mammogram was interpreted with the aid of an FDA-approved computer-aided dectection system. Electronically Signed By: Shawn Valentin MD 04/30/19 [id number]
--- NOTE | 2019-05-07 15:34 | DEXA ---
AP SPINE L1 - L4 1.429 1.9 3.6 LT FEMUR TOTAL 0.776 -1.8 -0.1 LT NECK 0.717 -2.3 -0.4 RT FEMUR TOTAL 0.765 -1.9 -0.2 RT NECK 0.732 -2.2 -0.3 TOTAL BODY TOTAL OTHER COMMENTS: Normal bone densitometry of the spine. There is low bone density of the hips. The increased density of the spine does not represent a significant change. The decreased density of the left hip does represent a significant change. The decreased density of the right hip does not represent a significant change. The density of the spine has increased 23.0% since the initial exam on 07/05/2000. The spine density has increased 1.8% since the most recent exam on 01/17/2017. The density of the left hip has decreased 8.6% since the initial exam on 07/05/2000. The density of the left hip has decreased 2.3% since the most recent exam on 01/17/2017. The density of the right hip has decreased 4.0% since the initial exam on 07/05/2000. The density of the right hip has decreased 0.5% since the most recent exam on 01/17/2017. FOLLOW-UP: Recommendation for the next bone density exam: 2 years. DEEPA
== END ==
LOC: M WHC 13:26
PROVIDERS: ATTEND Nurse Practitioner Family
DX: Z12.31 Encounter for screening mammogram for malignant neoplasm of breast (principal); M85.88 Other specified disorders of bone density and structure, other site; Z92.0 Personal history of contraception; Z92.23 Personal history of estrogen therapy; Z79.01 Long term (current) use of anticoagulants
CPT/HCPCS: 77063; 77067; 77080; 85610; G0463

== ENCOUNTER → 2019-06-20 | Outpatient (REF) | payer MEDICARE, BC ==
[2019-06-20 14:24] LABS: INR 3.67; PROTHROMBIN TIME 36.5 SECONDS (11.8-14.0)
[2019-06-20 14:25] LABS: PARTIAL THROMBOPLASTIN TIME 38.5 SECONDS (25.0-38.4)
== END ==
LOC: M SFHCPLAZ 11:33
PROVIDERS: ATTEND Nurse Practitioner Family
DX: Z51.81 Encounter for therapeutic drug level monitoring (principal); Z79.01 Long term (current) use of anticoagulants
CPT/HCPCS: 85610; 85730; G0463

== ENCOUNTER → 2019-08-05 | Outpatient (CLI) | payer MEDICARE, BC ==
[2019-08-05 14:12] LABS: BASO # 0.1 10^3/uL (0.0-0.2); BASO % 1.1 % (0.0-1.0); EOS # 0.2 10^3/uL (0.0-0.5); EOS % 1.8 % (0.0-3.0); HEMATOCRIT 40.2 % (36.0-47.0); HEMOGLOBIN 13.2 g/dl (12.0-15.5); LYMPH # 1.5 10^3/uL (1.5-5.0); LYMPH % 18.3 % (24.0-44.0); MEAN CORPUSCULAR HEMOGLOBIN 33.4 pg (27.0-33.0); MEAN CORPUSCULAR HGB CONC 32.8 g/dl (32.0-36.5); MEAN CORPUSCULAR VOLUME 101.8 fl (80.0-96.0); MONO # 0.6 10^3/uL (0.0-0.8); MONO % 7.2 % (0.0-5.0); NEUTROPHILS # 5.9 10^3/uL (1.5-8.5); NEUTROPHILS % 71.4 % (36.0-66.0); PLATELET COUNT, AUTOMATED 318 10^3/uL (150-450); RED BLOOD COUNT 3.95 10^6/uL (4.00-5.40); WHITE BLOOD COUNT 8.3 10^3/uL (4.0-10.0)
[2019-08-05 14:23] LABS: ALBUMIN 3.6 GM/DL (3.2-5.2); BILIRUBIN,TOTAL 0.5 MG/DL (0.2-1.0); CALCIUM LEVEL 9.2 MG/DL (8.8-10.2); CHOLESTEROL RISK RATIO 4.3 (<5); CREATININE FOR GFR 1.18 MG/DL (0.55-1.30); FREE T4 1.11 NG/DL (0.76-1.46); GLOMERULAR FILTRATION RATE 47.5 (>39); INR 2.32; MAGNESIUM LEVEL 2.6 MG/DL (1.8-2.4); PARTIAL THROMBOPLASTIN TIME 34.5 SECONDS (25.0-38.4); PROTHROMBIN TIME 25.3 SECONDS (11.8-14.0); THYROID STIMULATING HORMONE 1.61 uIU/ML (0.358-3.740); TOTAL PROTEIN 7.1 GM/DL (6.4-8.2)
[2019-08-05 14:27] LABS: TOTAL 25(OH) VITAMIN D 48.7 NG/ML (30.0-100.0)
[2019-08-05 14:37] LABS: HEMOGLOBIN A1c 5.6 %
[2019-08-06 12:24] LABS: C REACTIVE PROTEIN QUANTITATIV 1.13 MG/DL (0.00-0.30)
[2019-08-06 12:45] LABS: ERYTHROCYTE SEDIMENTATION RATE 30 mm/hr (0-30)
== END ==
LOC: M WUC 11:55
PROVIDERS: ATTEND Nurse Practitioner Family
DX: M48.061 Spinal stenosis, lumbar region without neurogenic claudication (principal); I10 Essential (primary) hypertension; E55.9 Vitamin D deficiency, unspecified; E78.2 Mixed hyperlipidemia; R73.01 Impaired fasting glucose; Z79.01 Long term (current) use of anticoagulants; Z79.82 Long term (current) use of aspirin; Z79.899 Other long term (current) drug therapy

== ENCOUNTER → 2019-10-24 | Outpatient (CLI) | payer MEDICARE, BC | LOC: M PLALAB 14:58 | PROVIDERS: ATTEND Internal Medicine Rheumatology | DX: M35.3 Polymyalgia rheumatica (principal) ==

== ENCOUNTER → 2020-02-10 | Outpatient (CLI) | payer MEDICARE, BC ==
[2020-02-10 13:05] LABS: BASO # 0.1 10^3/uL (0.0-0.2); BASO % 1.5 % (0.0-1.0); EOS # 0.6 10^3/uL (0.0-0.5); EOS % 8.2 % (0.0-3.0); HEMATOCRIT 35.2 % (36.0-47.0); HEMOGLOBIN 11.2 g/dl (12.0-15.5); LYMPH # 2.7 10^3/uL (1.5-5.0); LYMPH % 35.7 % (24.0-44.0); MEAN CORPUSCULAR HEMOGLOBIN 32.9 pg (27.0-33.0); MEAN CORPUSCULAR HGB CONC 31.8 g/dl (32.0-36.5); MEAN CORPUSCULAR VOLUME 103.5 fl (80.0-96.0); MONO # 0.8 10^3/uL (0.0-0.8); NEUTROPHILS # 3.3 10^3/uL (1.5-8.5); NEUTROPHILS % 43.2 % (36.0-66.0); PLATELET COUNT, AUTOMATED 227 10^3/uL (150-450); WHITE BLOOD COUNT 7.5 10^3/uL (4.0-10.0)
[2020-02-10 13:16] LABS: INR 2.53; PARTIAL THROMBOPLASTIN TIME 37.1 SECONDS (25.0-38.4); PROTHROMBIN TIME 27.1 SECONDS (11.8-14.0)
[2020-02-10 13:21] LABS: ALBUMIN 3.4 GM/DL (3.2-5.2); ALT/SGPT 28 U/L (12-78); BILIRUBIN,TOTAL 0.3 MG/DL (0.2-1.0); BLOOD UREA NITROGEN 33 MG/DL (7-18); C REACTIVE PROTEIN QUANTITATIV 0.31 MG/DL (0.00-0.30); CALCIUM LEVEL 8.7 MG/DL (8.8-10.2); CARBON DIOXIDE LEVEL 32 MEQ/L (21-32); CHLORIDE LEVEL 108 MEQ/L (98-107); CHOLESTEROL LEVEL 158 MG/DL (<200); CHOLESTEROL RISK RATIO 2.257 (<5); GLOMERULAR FILTRATION RATE 51.4 (>39); GLUCOSE, FASTING 107 MG/DL (70-100); HDL CHOLESTEROL 70 MG/DL (>40); LDL CHOLESTEROL 73 MG/DL (<100); MAGNESIUM LEVEL 2.3 MG/DL (1.8-2.4); NON-HDL-C 88 MG/DL; POTASSIUM SERUM 4.3 MEQ/L (3.5-5.1); SODIUM LEVEL 144 MEQ/L (136-145); TOTAL 25(OH) VITAMIN D 56.1 NG/ML (30.0-100.0); TOTAL PROTEIN 6.5 GM/DL (6.4-8.2); TRIGLYCERIDES LEVEL 73 MG/DL (<150); VITAMIN B12 LEVEL > 2000 PG/ML (247-911)
[2020-02-10 16:59] LABS: HEMOGLOBIN A1c 5.7 %
[2020-02-12 11:43] LABS: ALBUMIN 3.69 GM/DL (3.29-5.55); ALBUMIN % 56.8 % (55.8-66.1); ALPHA-1-GLOBULIN % 4.6 % (2.9-4.9); ALPHA-2-GLOBULINS 0.81 GM/DL (0.42-0.99); ALPHA-2-GLOBULINS % 12.5 % (7.1-11.8); BETA-1-GLOBULINS 0.42 GM/DL (0.28-0.60); BETA-1-GLOBULINS % 6.4 % (4.7-7.2); BETA-2-GLOBULINS 0.37 GM/DL (0.19-0.55); BETA-2-GLOBULINS % 5.7 % (3.2-6.5); GAMMA GLOBULINS 0.91 GM/DL (0.65-1.58)
== END ==
LOC: M WUC 09:07
PROVIDERS: ATTEND Nurse Practitioner Family
DX: Z51.81 Encounter for therapeutic drug level monitoring (principal); I10 Essential (primary) hypertension; E78.2 Mixed hyperlipidemia; E55.9 Vitamin D deficiency, unspecified; R73.01 Impaired fasting glucose; D64.9 Anemia, unspecified; D75.89 Other specified diseases of blood and blood-forming organs; Z79.899 Other long term (current) drug therapy

== ENCOUNTER → 2020-03-31 | Outpatient (REF) | payer MEDICARE, BC ==
[2020-03-31 15:39] LABS: INR 2.36; PROTHROMBIN TIME 25.6 SECONDS (11.8-14.0)
== END ==
LOC: M PLALAB 13:02
PROVIDERS: ATTEND Nurse Practitioner Family
DX: Z51.81 Encounter for therapeutic drug level monitoring (principal); Z79.01 Long term (current) use of anticoagulants

== ENCOUNTER → 2020-04-29 | Outpatient (REF) | payer MEDICARE, BC ==
[~2020-04-29] MED LIST changes: -ASPI81TA85 PO; +ASPI81TA86 PO; +BACI500O21 TOP; +CHLO125TA; +DULO1CAP6; +ENOX100I3; +ROSU10TA6; +TELM1TAB37
[2020-05-27 12:40] LABS: INR 2.57; PROTHROMBIN TIME 28.2 SECONDS (11.8-14.0)
== END ==
LOC: M SFHCPLAZ 10:06
PROVIDERS: ATTEND Physician Assistant Medical
DX: Z79.01 Long term (current) use of anticoagulants (principal)

== ENCOUNTER 2020-05-26 16:30 | Emergency (ER) | payer MEDICARE, BC ==
[~2020-05-26] VITALS: Ht 162.6 cm; Wt 91.1 kg
[~2020-05-26 16:30] MED LIST changes: -BACI500O21 TOP; -CHLO125TA; -DULO1CAP6; -ENOX100I3; -ROSU10TA6; -TELM1TAB37
[2020-05-26] MEDS ORDERED: ENOX100I3 (16:41)
[2020-05-26] MEDS ORDERED: ROSU10TA6 (16:41)
[2020-05-26] MEDS ORDERED: TELM1TAB37 (16:41)
[2020-05-26] MEDS ORDERED: CHLO125TA (16:41)
[2020-05-26] MEDS ORDERED: DULO1CAP6 (16:41)
[2020-05-26 17:18] LABS: BASO # 0.1 10^3/uL (0.0-0.2); BASO % 0.6 % (0.0-1.0); EOS # 0.2 10^3/uL (0.0-0.5); EOS % 2.3 % (0.0-3.0); HEMATOCRIT 26.8 % (36.0-47.0); HEMOGLOBIN 8.9 g/dl (12.0-15.5); LYMPH # 2.5 10^3/uL (1.5-5.0); LYMPH % 23.6 % (24.0-44.0); MEAN CORPUSCULAR HEMOGLOBIN 31.8 pg (27.0-33.0); MEAN CORPUSCULAR HGB CONC 33.2 g/dl (32.0-36.5); MEAN CORPUSCULAR VOLUME 95.7 fl (80.0-96.0); MONO # 1.2 10^3/uL (0.0-0.8); MONO % 11.2 % (0.0-5.0); NEUTROPHILS # 6.4 10^3/uL (1.5-8.5); NEUTROPHILS % 61.5 % (36.0-66.0); PLATELET COUNT, AUTOMATED 258 10^3/uL (150-450); WHITE BLOOD COUNT 10.4 10^3/uL (4.0-10.0)
[2020-05-26 17:40] LABS: INR 1.32; PROTHROMBIN TIME 16.7 SECONDS (11.8-14.0)
--- NOTE | 2020-05-26 18:26 | REPVR ---
PROCEDURE INFORMATION: Exam: US Duplex Left Upper Extremity Veins, Limited Exam date and time: 05/26/2020 6:00 PM Age: 75 years old Clinical indication: Pain; Arm, upper; Left; Prior surgery; Surgery date: <1 month; Surgery type: Pic line removal; Additional info: Recent picc removal, hard swollen ecchymosis TECHNIQUE: Imaging protocol: Real-time Duplex ultrasound of the Left Upper Extremity with 2-D ledezma scale, color Doppler flow and spectral waveform analysis with image documentation. Limited exam focused on the left upper extremity veins. COMPARISON: No relevant prior studies available. FINDINGS: Left deep veins: Internal jugular, subclavian, axillary and brachial veins patent without thrombus. Normal compressibility, augmentation response and/or Doppler waveforms. Left superficial veins: Suboptimal visualization of the basilic vein Visualized cephalic vein patent without thrombus. Soft tissues: At least 2 complex intramuscular collections abutting the humeral shaft, measuring up to 5.1 x 2.2 x 3.7 cm, likely hematomas. IMPRESSION: 1. No sonographic evidence of deep vein thrombosis. 2. At least 2 complex intramuscular collections abutting the humeral shaft, measuring up to 5.1 x 2.2 x 3.7 cm, likely hematomas. Electronically signed by: Juan Mccabe On 05/26/2020 18:25:40 PM
--- NOTE | 2020-05-26 18:52 | REPVR ---
PROCEDURE INFORMATION: Exam: US Left Non-Vascular Joint or Other Extremity Structure, Limited Upper Extremity Exam date and time: 05/26/2020 6:00 PM Age: 75 years old Clinical indication: Pain; Upper arm; Left; Prior surgery; Surgery date: <1 month; Patient HX: Picc line removal; Additional info: Recent picc removal, hard swollen ecchymosis TECHNIQUE: Imaging protocol: Left US joint or other nonvascular extremity structure or structures. Real-time ultrasound with image documentation. Limited study. Exam focused on the upper extremity in the region of clinical interest. COMPARISON: No relevant prior studies available. FINDINGS: Soft tissues: At least 2 complex intramuscular collections abutting the humeral shaft, measuring up to 5.1 x 2.2 x 3.7 cm, likely hematomas. IMPRESSION: At least 2 complex intramuscular collections abutting the humeral shaft, measuring up to 5.1 x 2.2 x 3.7 cm, likely hematomas. Electronically signed by: Juan Mccabe On 05/26/2020 18:52:43 PM
[2020-05-26 19:16] VITALS: BP 133/70
[2020-05-26] MEDS ORDERED: BACI500O21 TOP (19:16)
--- NOTE | 2020-05-27 10:45 | ED PDOC ---
Post-Departure Follow-Up vivien phipps faxed formal report of extrem us for fu Jayro Lewis MD May 27, 2020 10:45
== END 2020-05-26 19:29 | disposition home or self-care (01) ==
LOC: M ED 16:30
DX: S40.022A Contusion of left upper arm, initial encounter (principal); S41.112A Laceration without foreign body of left upper arm, initial encounter; X58.XXXA Exposure to other specified factors, initial encounter; Y92.89 Other specified places as the place of occurrence of the external cause; I10 Essential (primary) hypertension; E78.5 Hyperlipidemia, unspecified; Z79.01 Long term (current) use of anticoagulants

== ENCOUNTER → 2020-05-27 | Outpatient (CLI) | payer MEDICARE, BC ==
[~2020-05-27] MED LIST changes: +BACI500O21 TOP; +CHLO125TA; +DULO1CAP6; +ENOX100I3; +ROSU10TA6; +TELM1TAB37
[2020-05-27 13:07] LABS: HEMATOCRIT 25.9 % (36.0-47.0); HEMOGLOBIN 8.7 g/dl (12.0-15.5); MEAN CORPUSCULAR HEMOGLOBIN 32.5 pg (27.0-33.0); MEAN CORPUSCULAR HGB CONC 33.6 g/dl (32.0-36.5); MEAN CORPUSCULAR VOLUME 96.6 fl (80.0-96.0); PLATELET COUNT, AUTOMATED 282 10^3/uL (150-450); RED BLOOD COUNT 2.68 10^6/uL (4.00-5.40); WHITE BLOOD COUNT 12.4 10^3/uL (4.0-10.0)
[2020-05-27 13:18] LABS: INR 1.66; PROTHROMBIN TIME 19.9 SECONDS (11.8-14.0)
[2020-05-27 13:19] LABS: PARTIAL THROMBOPLASTIN TIME 65.1 SECONDS (25.0-38.4)
[2020-05-27 13:30] LABS: ALBUMIN 3.2 GM/DL (3.2-5.2); BILIRUBIN,TOTAL 1.4 MG/DL (0.2-1.0); CALCIUM LEVEL 8.8 MG/DL (8.8-10.2); CREATININE FOR GFR 1.11 MG/DL (0.55-1.30); GLOMERULAR FILTRATION RATE 50.9 (>39); POTASSIUM SERUM 3.5 MEQ/L (3.5-5.1); TOTAL PROTEIN 6.6 GM/DL (6.4-8.2)
== END ==
LOC: M PLALAB 11:09
PROVIDERS: ATTEND Family Medicine
DX: F50.9 Eating disorder, unspecified (principal); D64.9 Anemia, unspecified; I82.409 Acute embolism and thrombosis of unspecified deep veins of unspecified lower extremity

== ENCOUNTER → 2020-05-28 | Outpatient (CLI) | payer MEDICARE, BC ==
[2020-05-28 15:45] LABS: HEMATOCRIT 27.1 % (36.0-47.0); HEMOGLOBIN 8.8 g/dl (12.0-15.5); MEAN CORPUSCULAR HEMOGLOBIN 31.5 pg (27.0-33.0); MEAN CORPUSCULAR HGB CONC 32.5 g/dl (32.0-36.5); MEAN CORPUSCULAR VOLUME 97.1 fl (80.0-96.0); PLATELET COUNT, AUTOMATED 320 10^3/uL (150-450); RED BLOOD COUNT 2.79 10^6/uL (4.00-5.40)
== END ==
LOC: M PLALAB 15:10
PROVIDERS: ATTEND Nurse Practitioner Family
DX: I73.9 Peripheral vascular disease, unspecified (principal); D68.59 Other primary thrombophilia

== ENCOUNTER → 2020-05-30 | Outpatient (CLI) | payer MEDICARE, BC ==
[2020-05-30 12:35] LABS: HEMOGLOBIN 8.7 g/dl (12.0-15.5); MEAN CORPUSCULAR HEMOGLOBIN 31.8 pg (27.0-33.0); MEAN CORPUSCULAR HGB CONC 32.2 g/dl (32.0-36.5); MEAN CORPUSCULAR VOLUME 98.5 fl (80.0-96.0); PLATELET COUNT, AUTOMATED 351 10^3/uL (150-450); RED BLOOD COUNT 2.74 10^6/uL (4.00-5.40); WHITE BLOOD COUNT 10.5 10^3/uL (4.0-10.0)
[2020-05-30 12:48] LABS: INR 2.82; PROTHROMBIN TIME 30.3 SECONDS (11.8-14.0)
== END ==
LOC: M WUC 10:24
PROVIDERS: ATTEND Family Medicine
DX: D68.59 Other primary thrombophilia (principal); I73.9 Peripheral vascular disease, unspecified

== ENCOUNTER → 2020-06-09 | Outpatient (CLI) | payer MEDICARE, BC ==
[2020-06-09 13:38] LABS: BASO # 0.1 10^3/uL (0.0-0.2); BASO % 1.2 % (0.0-1.0); EOS # 0.4 10^3/uL (0.0-0.5); EOS % 4.6 % (0.0-3.0); HEMATOCRIT 32.2 % (36.0-47.0); HEMOGLOBIN 10.3 g/dl (12.0-15.5); LYMPH # 2.2 10^3/uL (1.5-5.0); LYMPH % 28.7 % (24.0-44.0); MEAN CORPUSCULAR HEMOGLOBIN 32.9 pg (27.0-33.0); MEAN CORPUSCULAR VOLUME 102.9 fl (80.0-96.0); MONO # 0.6 10^3/uL (0.0-0.8); MONO % 7.7 % (0.0-5.0); NEUTROPHILS # 4.4 10^3/uL (1.5-8.5); NEUTROPHILS % 56.6 % (36.0-66.0); PLATELET COUNT, AUTOMATED 400 10^3/uL (150-450); RED BLOOD COUNT 3.13 10^6/uL (4.00-5.40); WHITE BLOOD COUNT 7.7 10^3/uL (4.0-10.0)
[2020-06-09 14:10] LABS: CALCIUM LEVEL 8.5 MG/DL (8.8-10.2); CREATININE FOR GFR 1.3 MG/DL (0.55-1.30); FREE T4 1.03 NG/DL (0.76-1.46); GLOMERULAR FILTRATION RATE 42.4 (>39); THYROID STIMULATING HORMONE 3.16 uIU/ML (0.358-3.740)
== END ==
LOC: M PLALAB 09:50
PROVIDERS: ATTEND Nurse Practitioner Family
DX: M79.7 Fibromyalgia (principal); D75.89 Other specified diseases of blood and blood-forming organs; I10 Essential (primary) hypertension
CPT/HCPCS: 36415; 80048; 84439; 84443; 85025; G0463

== ENCOUNTER → 2020-07-29 | Outpatient (CLI) | payer MEDICARE, BC ==
--- NOTE | 2020-08-04 07:18 | SLEEPHOME ---
DATE: 07/29/2020 ORDERED BY: Yuko Goldberg NP Diagnostic home sleep testing was performed due to concern for the obstructive sleep apnea syndrome. For testing, a nocturnal T3 respiratory monitoring device was used. Continuous record was made of pulse, oxygen saturation, air flow, chest and abdominal strain, and body position. Nine hours and 59 minutes of data were reviewed. There were 7 hours and 20 minutes marked as time in bed. During the interval marked time in bed, there were 39 respiratory events identified of 10 seconds in duration or greater for a respiratory event index of 5.3. The events were primarily obstructive, 7 mixed and central apneas were noted. Baseline pulse rate was 77. Pulse rate ranged 63 to 103. Baseline saturation was 92%. Saturations fell to 87%. Testing was performed in both the supine and nonsupine positions. IMPRESSION: Abnormal home sleep testing with repetitive respiratory events and oxygen desaturations to 87% with a respiratory event index of 5.3 is consistent with the obstructive sleep apnea syndrome. RECOMMENDATION: A trial of sleep position retraining so as to avoid the supine posture may be helpful as most of the patient's respiratory events were associated with that position. If sleep symptoms persist, referral for a formal sleep evaluation could be considered. DEEPA
== END ==
LOC: M SLEEP HO 10:26
PROVIDERS: ATTEND Nurse Practitioner Family
DX: R06.83 Snoring (principal)

== ENCOUNTER → 2020-10-29 | Outpatient (REF) | payer MEDICARE, BC ==
[2020-10-29 15:32] LABS: BASO # 0.1 10^3/uL (0.0-0.2); BASO % 1.1 % (0.0-1.0); EOS # 0.5 10^3/uL (0.0-0.5); EOS % 7.1 % (0.0-3.0); HEMATOCRIT 35.5 % (36.0-47.0); HEMOGLOBIN 11.3 g/dl (12.0-15.5); LYMPH # 2.7 10^3/uL (1.5-5.0); LYMPH % 36.4 % (24.0-44.0); MEAN CORPUSCULAR HEMOGLOBIN 32.7 pg (27.0-33.0); MEAN CORPUSCULAR HGB CONC 31.8 g/dl (32.0-36.5); MEAN CORPUSCULAR VOLUME 102.6 fl (80.0-96.0); MONO # 0.7 10^3/uL (0.0-0.8); MONO % 9.9 % (0.0-5.0); NEUTROPHILS # 3.3 10^3/uL (1.5-8.5); NEUTROPHILS % 45.1 % (36.0-66.0); PLATELET COUNT, AUTOMATED 245 10^3/uL (150-450); RED BLOOD COUNT 3.46 10^6/uL (4.00-5.40); WHITE BLOOD COUNT 7.3 10^3/uL (4.0-10.0)
[2020-10-29 15:45] LABS: INR 2.65; PROTHROMBIN TIME 28.9 SECONDS (12.5-14.3)
[2020-10-29 16:06] LABS: ALBUMIN 3.6 GM/DL (3.2-5.2); BILIRUBIN,TOTAL 0.3 MG/DL (0.2-1.0); CALCIUM LEVEL 9.1 MG/DL (8.8-10.2); CREATININE FOR GFR 1.27 MG/DL (0.55-1.30); GLOMERULAR FILTRATION RATE 43.6 (>39); POTASSIUM SERUM 4.3 MEQ/L (3.5-5.1)
[2020-10-29 16:40] LABS: HEMOGLOBIN A1c 5.8 %
== END ==
LOC: M SFHCPLAZ 13:07
PROVIDERS: ATTEND Family Medicine
DX: I10 Essential (primary) hypertension (principal); Z79.899 Other long term (current) drug therapy; Z86.718 Personal history of other venous thrombosis and embolism
CPT/HCPCS: 36415; 80053; 82728; 83036; 83880; 85025; 85610; 85730; 93005; G0463

== ENCOUNTER → 2021-01-05 | Outpatient (CLI) | payer MEDICARE, BC ==
[2021-01-05 11:37] LABS: BASO # 0.1 10^3/uL (0.0-0.2); BASO % 1.2 % (0.0-1.0); EOS # 1.1 10^3/uL (0.0-0.5); HEMATOCRIT 34.1 % (36.0-47.0); HEMOGLOBIN 10.7 g/dl (12.0-15.5); LYMPH # 2.5 10^3/uL (1.5-5.0); LYMPH % 37.7 % (24.0-44.0); MEAN CORPUSCULAR HGB CONC 31.4 g/dl (32.0-36.5); MEAN CORPUSCULAR VOLUME 105.2 fl (80.0-96.0); MONO # 0.6 10^3/uL (0.0-0.8); MONO % 9.2 % (2.0-8.0); NEUTROPHILS # 2.4 10^3/uL (1.5-8.5); NEUTROPHILS % 35.8 % (36.0-66.0); PLATELET COUNT, AUTOMATED 318 10^3/uL (150-450); RED BLOOD COUNT 3.24 10^6/uL (4.00-5.40); WHITE BLOOD COUNT 6.7 10^3/uL (4.0-10.0)
[2021-01-05 11:49] LABS: INR 2.18; PROTHROMBIN TIME 24.8 SECONDS (12.5-14.3)
[2021-01-05 14:55] LABS: BILIRUBIN,TOTAL 0.5 MG/DL (0.2-1.0); CALCIUM LEVEL 9.3 MG/DL (8.8-10.2); CREATININE FOR GFR 1.11 MG/DL (0.55-1.30); GLOMERULAR FILTRATION RATE 50.9 (>39); POTASSIUM SERUM 4.5 MEQ/L (3.5-5.1)
[2021-01-05 14:56] LABS: ALBUMIN 3.4 GM/DL (3.2-5.2); C REACTIVE PROTEIN QUANTITATIV 0.87 MG/DL (0.00-0.30); CHOLESTEROL RISK RATIO 2.754 (<5); FREE T4 0.94 NG/DL (0.76-1.46); THYROID STIMULATING HORMONE 2.57 uIU/ML (0.358-3.740); TOTAL 25(OH) VITAMIN D 34.3 NG/ML (30.0-100.0); TOTAL PROTEIN 6.6 GM/DL (6.4-8.2)
[2021-01-06 14:44] LABS: HEMOGLOBIN A1c 5.8 %
== END ==
LOC: M WUC 08:10
PROVIDERS: ATTEND Nurse Practitioner Family
DX: M48.061 Spinal stenosis, lumbar region without neurogenic claudication (principal); Z86.718 Personal history of other venous thrombosis and embolism; E55.9 Vitamin D deficiency, unspecified; E78.2 Mixed hyperlipidemia; I10 Essential (primary) hypertension; Z79.01 Long term (current) use of anticoagulants; Z79.899 Other long term (current) drug therapy

== ENCOUNTER → 2021-01-07 | Outpatient (REF) | payer MEDICARE, BC ==
[2021-01-07 15:34] LABS: PERCENT SATURATION 25.3 % (13.2-45.0)
== END ==
LOC: M SFHCPLAZ 11:58
PROVIDERS: ATTEND Nurse Practitioner Family
DX: L29.9 Pruritus, unspecified (principal)

== ENCOUNTER → 2021-03-31 | Outpatient (CLI) | payer MEDICARE, BC ==
[2021-03-31 17:50] LABS: INR 4.23; PROTHROMBIN TIME 41.7 SECONDS (12.5-14.3)
== END ==
LOC: M WUC 13:33
PROVIDERS: ATTEND Nurse Practitioner Family
DX: Z51.81 Encounter for therapeutic drug level monitoring (principal); Z79.01 Long term (current) use of anticoagulants

== ENCOUNTER → 2021-07-06 | Outpatient (CLI) | payer MEDICARE, BC ==
[2021-07-06 14:05] LABS: BASO # 0.1 10^3/uL (0.0-0.2); BASO % 1.3 % (0.0-1.0); EOS # 0.4 10^3/uL (0.0-0.5); EOS % 5.9 % (0.0-3.0); HEMATOCRIT 34.4 % (36.0-47.0); LYMPH # 1.8 10^3/uL (1.5-5.0); LYMPH % 26.6 % (24.0-44.0); MEAN CORPUSCULAR HEMOGLOBIN 33.5 pg (27.0-33.0); MEAN CORPUSCULAR VOLUME 104.9 fl (80.0-96.0); MONO # 0.7 10^3/uL (0.0-0.8); MONO % 10.1 % (2.0-8.0); NEUTROPHILS # 3.8 10^3/uL (1.5-8.5); NEUTROPHILS % 55.8 % (36.0-66.0); PLATELET COUNT, AUTOMATED 334 10^3/uL (150-450); RED BLOOD COUNT 3.28 10^6/uL (4.00-5.40); WHITE BLOOD COUNT 6.8 10^3/uL (4.0-10.0)
[2021-07-06 14:22] LABS: HEMOGLOBIN A1c 5.5 %
[2021-07-06 14:25] LABS: INR 2.21; PROTHROMBIN TIME 24.9 SECONDS (12.7-14.5)
[2021-07-06 14:37] LABS: ALBUMIN 3.1 GM/DL (3.2-5.2); BILIRUBIN,TOTAL 0.3 MG/DL (0.2-1.0); C REACTIVE PROTEIN QUANTITATIV 0.66 MG/DL (0.00-0.30); CALCIUM LEVEL 8.8 MG/DL (8.8-10.2); CHOLESTEROL RISK RATIO 2.46 (<5); CREATININE FOR GFR 1.06 MG/DL (0.55-1.30); FREE T4 1.07 NG/DL (0.76-1.46); GLOMERULAR FILTRATION RATE 53.5 (>39); POTASSIUM SERUM 4.4 MEQ/L (3.5-5.1); THYROID STIMULATING HORMONE 2.29 uIU/ML (0.358-3.740); TOTAL PROTEIN 6.7 GM/DL (6.4-8.2)
== END ==
LOC: M PLALAB 09:00
PROVIDERS: ATTEND Nurse Practitioner Family
DX: M19.90 Unspecified osteoarthritis, unspecified site (principal); I10 Essential (primary) hypertension; E78.2 Mixed hyperlipidemia; D75.89 Other specified diseases of blood and blood-forming organs; Z79.01 Long term (current) use of anticoagulants; Z79.899 Other long term (current) drug therapy

== ENCOUNTER → 2021-10-15 | Outpatient (CLI) | payer MEDICARE, BC ==
[~2021-10-15] MED LIST changes: +ASPI-1 PO; +CARV12.5 PO; +PANT40TA29 PO
== END ==
LOC: M LABSMTC 10:38
PROVIDERS: ATTEND Anesthesiology
DX: Z01.812 Encounter for preprocedural laboratory examination (principal); Z20.822 Contact with and (suspected) exposure to COVID-19

== ENCOUNTER 2021-10-20 08:56 | Day surgery (SDC) | payer MEDICARE, BC ==
[~2021-10-20] VITALS: Ht 162.6 cm; Wt 93.4 kg
[~2021-10-20 08:56] MED LIST changes: +NS 1,000 ML IV ONE
[2021-10-20] MEDS ORDERED: LIDOCAINE 2% 100MG/5ML SDV (FOR ANES.) As Ordered ONE (09:49)
[2021-10-20] MEDS ORDERED: fentaNYL 100 MCG/2 ML INJECTION (J3010) As Ordered ONE (09:49)
[2021-10-20] MEDS ORDERED: propofoL 200 MG/20 ML VIAL As Ordered ONE (09:49)
[2021-10-20 10:34] VITALS: BP 146/67
== END 2021-10-20 10:36 | disposition home or self-care (01) ==
LOC: M OPP 08:56
PROVIDERS: ATTEND Surgery
DX: Z12.11 Encounter for screening for malignant neoplasm of colon (principal); Z86.010 Personal history of colon polyps; K29.70 Gastritis, unspecified, without bleeding; K44.9 Diaphragmatic hernia without obstruction or gangrene; Z79.01 Long term (current) use of anticoagulants; Z79.82 Long term (current) use of aspirin; Z79.891 Long term (current) use of opiate analgesic; Z79.899 Other long term (current) drug therapy; Z80.52 Family history of malignant neoplasm of bladder
CPT/HCPCS: 43239; 88305; G0105; J3010

== ENCOUNTER → 2022-01-10 | Outpatient (CLI) | payer MEDICARE, BC ==
[~2022-01-10] MED LIST changes: +ANEC4CRE3 TOP; +BISO5TAB14 PO; +CIPR7.5D5 AS; +METH-1164 PO; -NS 1,000 ML IV ONE; +ULTR1TAB PO; -ULTR37.54 PO
[2022-01-10 09:55] LABS: BASO # 0.1 10^3/uL (0.0-0.2); EOS # 0.4 10^3/uL (0.0-0.5); EOS % 4.5 % (0.0-3.0); HEMATOCRIT 34.8 % (36.0-47.0); HEMOGLOBIN 11.3 g/dl (12.0-15.5); LYMPH # 2.4 10^3/uL (1.5-5.0); MEAN CORPUSCULAR HEMOGLOBIN 32.9 pg (27.0-33.0); MEAN CORPUSCULAR HGB CONC 32.5 g/dl (32.0-36.5); MEAN CORPUSCULAR VOLUME 101.5 fl (80.0-96.0); MONO # 0.9 10^3/uL (0.0-0.8); MONO % 9.7 % (2.0-8.0); NEUTROPHILS # 5.2 10^3/uL (1.5-8.5); NEUTROPHILS % 57.5 % (36.0-66.0); PLATELET COUNT, AUTOMATED 393 10^3/uL (150-450); RED BLOOD COUNT 3.43 10^6/uL (4.00-5.40)
[2022-01-10 10:05] LABS: INR 2.2; PROTHROMBIN TIME 24.8 SECONDS (12.7-14.5)
[2022-01-10 10:17] LABS: ERYTHROCYTE SEDIMENTATION RATE 61 mm/hr (0-30)
[2022-01-10 10:45] LABS: ALBUMIN 3.4 GM/DL (3.2-5.2); BILIRUBIN,TOTAL 0.4 MG/DL (0.2-1.0); C REACTIVE PROTEIN QUANTITATIV 1.58 MG/DL (0.00-0.30); CHOLESTEROL RISK RATIO 2.725 (<5); CREATININE FOR GFR 1.15 MG/DL (0.55-1.30); FREE T4 0.91 NG/DL (0.76-1.46); GLOMERULAR FILTRATION RATE 48.7 (>39); POTASSIUM SERUM 4.7 MEQ/L (3.5-5.1); THYROID STIMULATING HORMONE 4.07 uIU/ML (0.358-3.740); TOTAL 25(OH) VITAMIN D 52.4 NG/ML (30.0-100.0); TOTAL PROTEIN 6.7 GM/DL (6.4-8.2)
== END ==
LOC: M WUC 08:35
PROVIDERS: ATTEND Nurse Practitioner Family
DX: Z51.81 Encounter for therapeutic drug level monitoring (principal); I10 Essential (primary) hypertension; E55.9 Vitamin D deficiency, unspecified; E78.2 Mixed hyperlipidemia; M79.7 Fibromyalgia; Z79.899 Other long term (current) drug therapy

== ENCOUNTER → 2022-07-10 | Outpatient (CLI) | payer MEDICARE, BC ==
[~2022-07-10] MED LIST changes: -BENI40TA30 PO; +OLME-3 PO
[2022-07-10 10:23] LABS: BASO # 0.1 10^3/uL (0.0-0.2); BASO % 1.2 % (0.0-1.0); EOS # 0.6 10^3/uL (0.0-0.5); EOS % 6.8 % (0.0-3.0); HEMATOCRIT 35.5 % (36.0-47.0); HEMOGLOBIN 11.3 g/dl (12.0-15.5); LYMPH # 2.2 10^3/uL (1.5-5.0); LYMPH % 26.9 % (24.0-44.0); MEAN CORPUSCULAR HEMOGLOBIN 32.6 pg (27.0-33.0); MEAN CORPUSCULAR HGB CONC 31.8 g/dl (32.0-36.5); MEAN CORPUSCULAR VOLUME 102.3 fl (80.0-96.0); MONO # 0.9 10^3/uL (0.0-0.8); MONO % 10.5 % (2.0-8.0); NEUTROPHILS # 4.5 10^3/uL (1.5-8.5); NEUTROPHILS % 54.2 % (36.0-66.0); PLATELET COUNT, AUTOMATED 392 10^3/uL (150-450); RED BLOOD COUNT 3.47 10^6/uL (4.00-5.40); WHITE BLOOD COUNT 8.3 10^3/uL (4.0-10.0)
[2022-07-10 10:34] LABS: INR 1.82; PROTHROMBIN TIME 21.4 SECONDS (12.5-14.5)
[2022-07-10 11:11] LABS: CALCIUM LEVEL 8.9 MG/DL (8.8-10.2); CREATININE FOR GFR 1.26 MG/DL (0.55-1.30); GLOMERULAR FILTRATION RATE 43.7 (>39); POTASSIUM SERUM 4.6 MEQ/L (3.5-5.1)
[2022-07-10 11:12] LABS: ALBUMIN 3.2 GM/DL (3.2-5.2); BILIRUBIN,TOTAL 0.4 MG/DL (0.2-1.0); C REACTIVE PROTEIN QUANTITATIV 0.95 MG/DL (0.00-0.30); CHOLESTEROL RISK RATIO 2.323 (<5); FREE T4 0.9 NG/DL (0.76-1.46); THYROID STIMULATING HORMONE 1.42 uIU/ML (0.358-3.740); TOTAL PROTEIN 7.3 GM/DL (6.4-8.2)
[2022-07-10 11:40] LABS: ERYTHROCYTE SEDIMENTATION RATE 65 mm/hr (0-30)
== END ==
LOC: M PLALAB 08:40
PROVIDERS: ATTEND Nurse Practitioner Family
DX: M79.7 Fibromyalgia (principal); E78.2 Mixed hyperlipidemia; E55.9 Vitamin D deficiency, unspecified; I10 Essential (primary) hypertension; Z51.81 Encounter for therapeutic drug level monitoring; Z79.899 Other long term (current) drug therapy

== ENCOUNTER → 2022-08-10 | Outpatient (CLI) | payer MEDICARE, BC | LOC: M WHC 11:03 | PROVIDERS: ATTEND Nurse Practitioner Family | DX: Z12.31 Encounter for screening mammogram for malignant neoplasm of breast (principal) ==

== ENCOUNTER → 2023-03-21 | Outpatient (CLI) | payer MEDICARE, BC ==
[2023-03-21 10:46] LABS: BASO # 0.1 10^3/uL (0.0-0.2); BASO % 1.2 % (0.0-1.0); EOS # 0.4 10^3/uL (0.0-0.5); EOS % 5.9 % (0.0-3.0); HEMATOCRIT 33.2 % (36.0-47.0); LYMPH # 2.5 10^3/uL (1.5-5.0); LYMPH % 33.3 % (24.0-44.0); MEAN CORPUSCULAR HEMOGLOBIN 32.9 pg (27.0-33.0); MEAN CORPUSCULAR HGB CONC 33.1 g/dl (32.0-36.5); MEAN CORPUSCULAR VOLUME 99.4 fl (80.0-96.0); MONO # 0.8 10^3/uL (0.0-0.8); MONO % 11.2 % (2.0-8.0); NEUTROPHILS # 3.6 10^3/uL (1.5-8.5); PLATELET COUNT, AUTOMATED 346 10^3/uL (150-450); RED BLOOD COUNT 3.34 10^6/uL (4.00-5.40); WHITE BLOOD COUNT 7.5 10^3/uL (4.0-10.0)
[2023-03-21 10:56] LABS: INR 2.03; PROTHROMBIN TIME 23.3 SECONDS (12.5-14.5)
[2023-03-21 11:42] LABS: ALBUMIN 3.3 G/DL (3.2-5.2); ALKALINE PHOSPHATASE 57 U/L (46-116); ALT/SGPT 22 U/L (7.0-40); AST/SGOT 16 U/L (<34); BILIRUBIN,TOTAL 0.3 MG/DL (0.3-1.2); BLOOD UREA NITROGEN 29 MG/DL (9-23); CALCIUM LEVEL 8.5 MG/DL (8.3-10.6); CARBON DIOXIDE LEVEL 30 MMOL/L (20-31); CHLORIDE LEVEL 106 MMOL/L (98-107); CHOLESTEROL LEVEL 161 MG/DL (<200); CREATININE FOR GFR 0.97 MG/DL (0.55-1.30); GLUCOSE, FASTING 102 MG/DL (74-106); HDL CHOLESTEROL 57.3 MG/DL (>40); IRON (FE) 56 UG/DL (50-170); LDL CHOLESTEROL 83.9 MG/DL (<100); NON-HDL-C 103.7 MG/DL; POTASSIUM SERUM 4.3 MMOL/L (3.5-5.1); SODIUM LEVEL 141 MMOL/L (136-145); TOTAL PROTEIN 6.1 G/DL (5.7-8.2); TRIGLYCERIDES LEVEL 99 MG/DL (<150)
[2023-03-21 11:47] LABS: FOLATE 5.23 NG/ML (>5.4)
[2023-03-21 11:48] LABS: VITAMIN B12 LEVEL > 2000 PG/ML (211-911)
== END ==
LOC: M PLALAB 08:42
PROVIDERS: ATTEND Nurse Practitioner Family
DX: E78.2 Mixed hyperlipidemia (principal); I10 Essential (primary) hypertension; D75.89 Other specified diseases of blood and blood-forming organs; D64.9 Anemia, unspecified; E55.9 Vitamin D deficiency, unspecified; M79.7 Fibromyalgia; Z51.81 Encounter for therapeutic drug level monitoring; Z79.01 Long term (current) use of anticoagulants

== ENCOUNTER → 2023-03-30 | Outpatient (CLI) | payer MEDICARE, BC | LOC: M PLAIMG 10:14 | PROVIDERS: ATTEND Nurse Practitioner Family | DX: M54.16 Radiculopathy, lumbar region (principal); M25.551 Pain in right hip ==

== ENCOUNTER → 2023-04-19 | Outpatient (CLI) | payer MEDICARE, BC | LOC: M RAD 15:36 | PROVIDERS: ATTEND Nurse Practitioner Family | DX: M54.16 Radiculopathy, lumbar region (principal) ==

== ENCOUNTER → 2023-07-16 | Outpatient (CLI) | payer MEDICARE, BC ==
[2023-07-17 01:51] LABS: C REACTIVE PROTEIN QUANTITATIV 0.7 MG/DL (<1.0)
[2023-07-17 01:53] LABS: FREE T4 0.97 NG/DL (0.89-1.76)
[2023-07-17 01:54] LABS: FREE T3 3.2 PG/ML (2.3-4.2); THYROID STIMULATING HORMONE 2.498 uIU/ML (0.55-4.78)
== END ==
LOC: M PLALAB 09:56
PROVIDERS: ATTEND Nurse Practitioner Family
DX: R53.83 Other fatigue (principal); Z51.81 Encounter for therapeutic drug level monitoring

== ENCOUNTER → 2023-12-07 | Outpatient (CLI) | payer MEDICARE, BC ==
[2023-12-07 14:23] LABS: THYROID STIMULATING HORMONE 1.828 uIU/ML (0.55-4.78)
[2023-12-07 14:24] LABS: THYROID PEROXIDASE ANTIBODY 96 U/ML (<60.0)
[2023-12-07 14:25] LABS: FREE T4 1.07 NG/DL (0.89-1.76)
[2023-12-07 14:27] LABS: THYROGLOBULIN ANTIBODY > 500.0 U/ML (<60.0)
== END ==
LOC: M PLALAB 11:20
PROVIDERS: ATTEND Nurse Practitioner Family
DX: E03.8 Other specified hypothyroidism (principal)

== ENCOUNTER → 2023-12-20 | Outpatient (CLI) | payer MEDICARE, BC | LOC: M RAD 12:23 | PROVIDERS: ATTEND Nurse Practitioner Family | DX: E04.1 Nontoxic single thyroid nodule (principal) ==

== ENCOUNTER → 2024-01-16 | Outpatient (CLI) | payer MEDICARE, BC ==
[2024-01-16 12:41] LABS: INR 4.6; PROTHROMBIN TIME 41.7 SECONDS (12.5-14.5)
== END ==
LOC: M PLALAB 11:17
PROVIDERS: ATTEND Nurse Practitioner Family
DX: Z51.81 Encounter for therapeutic drug level monitoring (principal); Z79.01 Long term (current) use of anticoagulants

== ENCOUNTER → 2024-01-28 | Outpatient (CLI) | payer MEDICARE, BC ==
[~2024-01-28] MED LIST changes: -ROSU10TA6; +ROSU10TA61
[2024-01-28 16:49] LABS: FREE T4 1.05 NG/DL (0.89-1.76); THYROID STIMULATING HORMONE 0.471 uIU/ML (0.55-4.78)
== END ==
LOC: M PLALAB 14:20
PROVIDERS: ATTEND Nurse Practitioner Family
DX: E06.3 Autoimmune thyroiditis (principal)

== ENCOUNTER → 2024-03-13 | Outpatient (CLI) | payer MEDICARE, BC ==
[2024-03-13 12:17] LABS: BASO # 0.1 10^3/uL (0.0-0.2); BASO % 1.5 % (0.0-1.0); EOS # 0.6 10^3/uL (0.0-0.5); EOS % 7.7 % (0.0-3.0); HEMATOCRIT 32.7 % (36.0-47.0); HEMOGLOBIN 10.6 g/dl (12.0-15.5); LYMPH # 2.3 10^3/uL (1.5-5.0); LYMPH % 28.5 % (24.0-44.0); MEAN CORPUSCULAR HEMOGLOBIN 32.4 pg (27.0-33.0); MEAN CORPUSCULAR HGB CONC 32.4 g/dl (32.0-36.5); MONO # 0.8 10^3/uL (0.0-0.8); MONO % 9.7 % (2.0-8.0); NEUTROPHILS # 4.1 10^3/uL (1.5-8.5); NEUTROPHILS % 52.1 % (36.0-66.0); PLATELET COUNT, AUTOMATED 414 10^3/uL (150-450); RED BLOOD COUNT 3.27 10^6/uL (4.00-5.40); WHITE BLOOD COUNT 7.9 10^3/uL (4.0-10.0)
[2024-03-13 12:25] LABS: INR 2.55; PROTHROMBIN TIME 26.5 SECONDS (12.5-14.5)
[2024-03-13 12:45] LABS: ALBUMIN 3.1 G/DL (3.2-5.2); BILIRUBIN,TOTAL 0.3 MG/DL (0.3-1.2); CALCIUM LEVEL 8.9 MG/DL (8.3-10.6); CHOLESTEROL RISK RATIO 4.59 (<5); CREATININE FOR GFR 1.07 MG/DL (0.55-1.30); FREE T4 1.15 NG/DL (0.89-1.76); GLOMERULAR FILTRATION RATE 52.5 (>32); HDL CHOLESTEROL 51.6 MG/DL (>40); LDL CHOLESTEROL 159.8 MG/DL (<100); NON-HDL-C 185.4 MG/DL; PERCENT SATURATION 15.3 % (13.2-45.0); POTASSIUM SERUM 4.4 MMOL/L (3.5-5.1); THYROID STIMULATING HORMONE 1.522 uIU/ML (0.55-4.78); TOTAL PROTEIN 6.5 G/DL (5.7-8.2)
[2024-03-13 12:46] LABS: TOTAL 25(OH) VITAMIN D 43.1 NG/ML (20.0-100.0)
== END ==
LOC: M WUC 08:47
PROVIDERS: ATTEND Nurse Practitioner Family
DX: I10 Essential (primary) hypertension (principal); E55.9 Vitamin D deficiency, unspecified; E78.2 Mixed hyperlipidemia; D50.9 Iron deficiency anemia, unspecified

== ENCOUNTER → 2024-04-16 | Outpatient (CLI) | payer MEDICARE, BC ==
[2024-04-16 12:44] LABS: INR 3.97; PROTHROMBIN TIME 37.2 SECONDS (12.5-14.5)
== END ==
LOC: M PLALAB 11:30
PROVIDERS: ATTEND Nurse Practitioner Family
DX: Z51.81 Encounter for therapeutic drug level monitoring (principal)

== ENCOUNTER → 2024-05-23 | Outpatient (CLI) | payer MEDICARE, BC ==
[2024-05-23 12:56] LABS: D-DIMER QUANT 0.96 ug/mL (<0.5); INR 3.41; PROTHROMBIN TIME 33.2 SECONDS (12.5-14.5)
== END ==
LOC: M PLAIMG 11:09
PROVIDERS: ATTEND Nurse Practitioner Family
DX: M47.816 Spondylosis without myelopathy or radiculopathy, lumbar region (principal); R06.02 Shortness of breath; Z51.81 Encounter for therapeutic drug level monitoring; Z79.01 Long term (current) use of anticoagulants

== ENCOUNTER → 2024-05-29 | Outpatient (CLI) | payer MEDICARE, BC ==
[2024-05-29 15:15] LABS: CALCIUM LEVEL 9.2 MG/DL (8.3-10.6); CREATININE FOR GFR 1.2 MG/DL (0.55-1.30); POTASSIUM SERUM 5.4 MMOL/L (3.5-5.1)
== END ==
LOC: M PLALAB 11:07
PROVIDERS: ATTEND Nurse Practitioner Family
DX: I10 Essential (primary) hypertension (principal)

== ENCOUNTER → 2024-06-03 | Outpatient (CLI) | payer MEDICARE, BC ==
[~2024-06-03] MED LIST changes: +ISOVUE-370 76% 100ML VIAL As Ordered ONE
== END ==
LOC: M RAD 15:13
PROVIDERS: ATTEND Nurse Practitioner Family
DX: R06.02 Shortness of breath (principal); R59.0 Localized enlarged lymph nodes
CPT/HCPCS: 71275; Q9967

== ENCOUNTER → 2024-07-11 | Outpatient (CLI) | payer MEDICARE, BC ==
[~2024-07-11] MED LIST changes: -ISOVUE-370 76% 100ML VIAL As Ordered ONE
[2024-07-11 12:27] LABS: INR 3.75; PROTHROMBIN TIME 35.6 SECONDS (12.5-14.5)
== END ==
LOC: M PLALAB 11:16
PROVIDERS: ATTEND Nurse Practitioner Family
DX: Z86.718 Personal history of other venous thrombosis and embolism (principal)

== ENCOUNTER → 2024-09-03 | Outpatient (CLI) | payer MEDICARE, BC ==
[2024-09-03 09:59] LABS: BASO # 0.1 10^3/uL (0.0-0.2); BASO % 1.4 % (0.0-1.0); EOS # 0.5 10^3/uL (0.0-0.5); EOS % 7.3 % (0.0-3.0); HEMATOCRIT 33.2 % (36.0-47.0); HEMOGLOBIN 10.8 g/dl (12.0-15.5); LYMPH # 2.1 10^3/uL (1.5-5.0); LYMPH % 29.9 % (24.0-44.0); MEAN CORPUSCULAR HEMOGLOBIN 32.7 pg (27.0-33.0); MEAN CORPUSCULAR HGB CONC 32.5 g/dl (32.0-36.5); MEAN CORPUSCULAR VOLUME 100.6 fl (80.0-96.0); MONO # 0.8 10^3/uL (0.0-0.8); MONO % 11.4 % (2.0-8.0); NEUTROPHILS # 3.5 10^3/uL (1.5-8.5); NEUTROPHILS % 49.6 % (36.0-66.0); PLATELET COUNT, AUTOMATED 350 10^3/uL (150-450)
[2024-09-03 10:15] LABS: INR 2.83; PROTHROMBIN TIME 29.7 SECONDS (12.5-14.5)
[2024-09-03 10:33] LABS: BILIRUBIN,TOTAL 0.3 MG/DL (0.3-1.2); C REACTIVE PROTEIN QUANTITATIV 1.12 MG/DL (<1.0); CALCIUM LEVEL 9.2 MG/DL (8.3-10.6); CHOLESTEROL RISK RATIO 3.03 (<5); CREATININE FOR GFR 1.03 MG/DL (0.55-1.30); FREE T4 0.93 NG/DL (0.89-1.76); GLOMERULAR FILTRATION RATE 54.9 (>32); HDL CHOLESTEROL 56.4 MG/DL (>40); NON-HDL-C 114.6 MG/DL; PERCENT SATURATION 22.1 % (13.2-45.0); POTASSIUM SERUM 4.4 MMOL/L (3.5-5.1); THYROID STIMULATING HORMONE 1.686 uIU/ML (0.55-4.78); TOTAL 25(OH) VITAMIN D 43.6 NG/ML (20.0-100.0); TOTAL PROTEIN 6.7 G/DL (5.7-8.2)
== END ==
LOC: M WUC 08:03
PROVIDERS: ATTEND Nurse Practitioner Family
DX: D64.9 Anemia, unspecified (principal); E03.9 Hypothyroidism, unspecified; M35.3 Polymyalgia rheumatica; I10 Essential (primary) hypertension; E55.9 Vitamin D deficiency, unspecified; E78.2 Mixed hyperlipidemia; Z51.81 Encounter for therapeutic drug level monitoring

== ENCOUNTER → 2024-10-02 | Outpatient (REF) | payer MEDICARE, BC, OTHER | LOC: M SFHCPLAZ 15:35 | PROVIDERS: ATTEND Nurse Practitioner Family | DX: M48.061 Spinal stenosis, lumbar region without neurogenic claudication (principal); Z79.899 Other long term (current) drug therapy ==

== ENCOUNTER → 2024-12-08 | Outpatient (CLI) | payer MEDICARE, OTHER ==
[2024-12-08 17:10] LABS: INR 3.95; PROTHROMBIN TIME 38.2 SECONDS (12.5-14.5)
[2024-12-08 17:30] LABS: FOLATE 22.15 NG/ML (>5.4)
[2024-12-10 09:22] LABS: T P ELECTROPHORESIS SO 6.9 g/dL (6.1-8.1)
[2024-12-11 07:26] LABS: ALBUMIN SPEP 3.7 g/dL (3.8-4.8); ALPHA-1-GLOBULINS SO 0.4 g/dL (0.2-0.3); ALPHA-2-GLOBULINS SO 0.6 g/dL (0.5-0.9); BETA 2 GLOBULIN 0.5 g/dL (0.2-0.5); BETA-GLOBULIN SO 0.5 g/dL (0.4-0.6); GAMMA GLOBULINS SO 1.3 g/dL (0.8-1.7)
== END ==
LOC: M PLALAB 15:18
PROVIDERS: ATTEND Nurse Practitioner Family
DX: Z51.81 Encounter for therapeutic drug level monitoring (principal); Z79.01 Long term (current) use of anticoagulants; D53.9 Nutritional anemia, unspecified; R53.83 Other fatigue

== ENCOUNTER → 2024-12-12 | Outpatient (CLI) | payer MEDICARE, OTHER | LOC: M WHC 12:44 | PROVIDERS: ATTEND Nurse Practitioner Family | DX: M85.89 Other specified disorders of bone density and structure, multiple sites (principal); Z12.31 Encounter for screening mammogram for malignant neoplasm of breast; R92.323 Mammographic fibroglandular density, bilateral breasts ==

== ENCOUNTER → 2025-01-20 | Outpatient (CLI) | payer BC, MEDICARE ==
[~2025-01-20] MED LIST changes: +METHACHOLINE KIT (6 VIAL.NEB PREMIX) INH ONE
== END ==
LOC: M CARPUL 10:50
PROVIDERS: ATTEND Internal Medicine Critical Care Medicine
DX: R06.00 Dyspnea, unspecified (principal)
CPT/HCPCS: 94070; 95070; J7674

== ENCOUNTER → 2025-04-20 | Outpatient (CLI) | payer MEDICARE, OTHER ==
[~2025-04-20] MED LIST changes: -METHACHOLINE KIT (6 VIAL.NEB PREMIX) INH ONE
[2025-04-20 17:10] LABS: INR 2.85
== END ==
LOC: M PLALAB 15:03
PROVIDERS: ATTEND Nurse Practitioner Family
DX: Z51.81 Encounter for therapeutic drug level monitoring (principal); Z79.01 Long term (current) use of anticoagulants

== ENCOUNTER → 2025-05-20 | Outpatient (CLI) | payer MEDICARE, OTHER ==
[2025-05-20 15:15] LABS: INR 3.83
== END ==
LOC: M PLALAB 11:56
PROVIDERS: ATTEND Nurse Practitioner Family
DX: Z86.718 Personal history of other venous thrombosis and embolism (principal)

== ENCOUNTER → 2025-06-30 | Outpatient (CLI) | payer MEDICARE, OTHER ==
[~2025-06-30] MED LIST changes: +ALLE10TA28 PO; +AMOX875T2 PO; +BACI1CAP PO; -CHLO125TA; +CHLO125TA PO; +CO Q300C2 PO; -DULO1CAP6; +DULO1CAP6 PO; +FOLI1TAB11 PO; +GABA-1171 PO; +LEVO25TA5 PO; +MAGN1TAB26 PO; +POTA99CA2 PO; +PRED-1142 PO; -ROSU10TA61; +ROSU10TA61 PO; +SEMA0.5P INJ; +TELM1TAB31 PO; +TRAM1TAB42 PO; +WARF-18 PO; +[UNRECOGNIZED DRUG - OTHER] PO
[2025-06-30 12:58] LABS: BASO # 0.1 10^3/uL (0.0-0.2); BASO % 1.5 % (0.0-1.0); EOS # 0.2 10^3/uL (0.0-0.5); EOS % 2.9 % (0.0-3.0); LYMPH # 2.5 10^3/uL (1.5-5.0); LYMPH % 32.9 % (24.0-44.0); MONO # 0.8 10^3/uL (0.0-0.8); MONO % 10.5 % (2.0-8.0); NEUTROPHILS # 3.9 10^3/uL (1.5-8.5); NEUTROPHILS % 51.8 % (36.0-66.0); PLATELET COUNT, AUTOMATED 418 10^3/uL (150-450)
[2025-06-30 13:01] LABS: INR 3.9
[2025-06-30 15:48] LABS: CALCIUM LEVEL 8.5 MG/DL (8.3-10.6); CARBON DIOXIDE LEVEL 28.0 MMOL/L (20-31); CHLORIDE LEVEL 101.0 MMOL/L (98-107); CREATININE FOR GFR 2.2 MG/DL (0.55-1.30); GLOMERULAR FILTRATION RATE 22.0 (>32); POTASSIUM SERUM 4.8 MMOL/L (3.5-5.1); SODIUM LEVEL 140.0 MMOL/L (136-145)
== END ==
LOC: M PLALAB 09:28
PROVIDERS: ATTEND Nurse Practitioner Family
DX: A41.9 Sepsis, unspecified organism (principal); Z51.81 Encounter for therapeutic drug level monitoring

== ENCOUNTER → 2025-07-01 | Outpatient (REF) | payer MEDICARE, OTHER ==
[~2025-07-01] MED LIST changes: -ROSU10TA61 PO; +ROSU10TA90 PO
== END ==
LOC: M SFHCPLAZ 14:33
PROVIDERS: ATTEND Nurse Practitioner Family
DX: R19.7 Diarrhea, unspecified (principal)

== ENCOUNTER → 2025-07-15 | Outpatient (CLI) | payer MEDICARE, OTHER ==
[~2025-07-15] MED LIST changes: +ROSU10TA61 PO; -ROSU10TA90 PO
[2025-07-15 17:20] LABS: ALT/SGPT 25 U/L (7.0-40); AST/SGOT 28 U/L (<34); C REACTIVE PROTEIN QUANTITATIV 0.54 MG/DL (<1.0); CALCIUM LEVEL 9.2 MG/DL (8.3-10.6); CARBON DIOXIDE LEVEL 29 MMOL/L (20-31); CHLORIDE LEVEL 101 MMOL/L (98-107); CREATININE FOR GFR 1.37 MG/DL (0.55-1.30); GLOMERULAR FILTRATION RATE 38.8 (>32); POTASSIUM SERUM 4.5 MMOL/L (3.5-5.1); RHEUMATOID FACTOR QUANT < 3.5 IU/ML (<14); SODIUM LEVEL 140 MMOL/L (136-145)
[2025-07-15 17:21] LABS: BASO # 0.1 10^3/uL (0.0-0.2); BASO % 1.0 % (0.0-1.0); EOS # 0.3 10^3/uL (0.0-0.5); EOS % 3.1 % (0.0-3.0); LYMPH # 3.1 10^3/uL (1.5-5.0); LYMPH % 37.5 % (24.0-44.0); MONO # 0.7 10^3/uL (0.0-0.8); MONO % 8.3 % (2.0-8.0); NEUTROPHILS # 4.1 10^3/uL (1.5-8.5); NEUTROPHILS % 49.9 % (36.0-66.0); PLATELET COUNT, AUTOMATED 319 10^3/uL (150-450)
[2025-07-15 17:28] LABS: CPK CREATINE PHOSPHOKINASE 42 U/L (34-145)
== END ==
LOC: M PLALAB 14:52
PROVIDERS: ATTEND Nurse Practitioner Family
DX: Z87.39 Personal history of other diseases of the musculoskeletal system and connective tissue (principal); E03.9 Hypothyroidism, unspecified

== ENCOUNTER → 2025-07-30 | Outpatient (CLI) | payer MEDICARE, OTHER ==
[~2025-07-30] MED LIST changes: -ROSU10TA61 PO; +ROSU10TA90 PO
[2025-07-30 15:02] LABS: BASO # 0.1 10^3/uL (0.0-0.2); BASO % 1.2 % (0.0-1.0); EOS # 0.5 10^3/uL (0.0-0.5); EOS % 5.7 % (0.0-3.0); LYMPH # 2.9 10^3/uL (1.5-5.0); LYMPH % 34.3 % (24.0-44.0); MONO # 0.8 10^3/uL (0.0-0.8); MONO % 9.8 % (2.0-8.0); NEUTROPHILS # 4.1 10^3/uL (1.5-8.5); NEUTROPHILS % 48.6 % (36.0-66.0); PLATELET COUNT, AUTOMATED 419 10^3/uL (150-450)
[2025-07-30 15:19] LABS: INR 4.17
[2025-07-30 15:34] LABS: ALT/SGPT 24.0 U/L (7.0-40); AST/SGOT 24.0 U/L (<34); CALCIUM LEVEL 9.0 MG/DL (8.3-10.6); CARBON DIOXIDE LEVEL 28.0 MMOL/L (20-31); CHLORIDE LEVEL 102.0 MMOL/L (98-107); CHOLESTEROL LEVEL 164.0 MG/DL (<200); CHOLESTEROL RISK RATIO 3.56 (<5); CREATININE FOR GFR 1.39 MG/DL (0.55-1.30); GLOMERULAR FILTRATION RATE 38.1 (>32); IRON (FE) 77.0 UG/DL (50-170); LDL CHOLESTEROL 84.8 MG/DL (<100); MAGNESIUM LEVEL 2.2 MG/DL (1.8-2.4); NON-HDL-C 118.0 MG/DL; PERCENT SATURATION 24.7 % (13.2-45.0); POTASSIUM SERUM 4.4 MMOL/L (3.5-5.1); SODIUM LEVEL 139.0 MMOL/L (136-145); TRIGLYCERIDES LEVEL 166.0 MG/DL (<150)
[2025-07-30 15:35] LABS: FREE T4 1.08 NG/DL (0.89-1.76)
[2025-07-30 15:36] LABS: TOTAL 25(OH) VITAMIN D 67.6 NG/ML (20.0-100.0)
== END ==
LOC: M PLALAB 11:43
PROVIDERS: ATTEND Nurse Practitioner Family
DX: Z00.00 Encounter for general adult medical examination without abnormal findings (principal); N82.9 Female genital tract fistula, unspecified; E78.2 Mixed hyperlipidemia; E55.9 Vitamin D deficiency, unspecified; D64.9 Anemia, unspecified; E03.9 Hypothyroidism, unspecified; I10 Essential (primary) hypertension; Z51.81 Encounter for therapeutic drug level monitoring

== ENCOUNTER → 2025-09-02 | Outpatient (CLI) | payer MEDICARE, OTHER ==
[2025-09-02 10:50] LABS: INR 3.57
[2025-09-02 11:02] LABS: PTH INTACT 95.6 PG/ML (18.5-88.0)
[2025-09-02 11:03] LABS: IRON (FE) 70.0 UG/DL (50-170)
== END ==
LOC: M PLALAB 08:11
PROVIDERS: ATTEND Nurse Practitioner Family
DX: E55.9 Vitamin D deficiency, unspecified (principal); Z51.81 Encounter for therapeutic drug level monitoring; D64.9 Anemia, unspecified